=== PATIENT | female | born 1945 | race Caucasian/White ===

== ENCOUNTER 2019-06-01 21:25 | Inpatient (IN) ==
[2019-06-02] MEDS ORDERED: Naloxone 0.4 MG/ML INJ IVP PRN (00:05)
[2019-06-02] MEDS ORDERED: Lactulose Oral Soln 20 GM/30 ML UDC GTUBE ONE (00:07)
[2019-06-02] MEDS ORDERED: Potassium Chloride 40 MEQ, Lidocaine 1% 2 ML in D5% in Water 500 ML IVPB ONE (00:09)
[2019-06-02] MEDS ORDERED: Potassium Chloride Elixir 20 MEQ/15 ML UDC GTUBE ONE (00:09)
[2019-06-02] MEDS ORDERED: Isovue-370 500 ML BOTTLE IVP ONE (00:14)
[2019-06-02] MEDS ORDERED: 0.9 % Sodium Chloride 1,000 ML IVC SCH (00:15)
[2019-06-02] MEDS ORDERED: Dextrose Gel 15 GM/37.5 ML TUBE PO PRN ×2 (00:53)
[2019-06-02] MEDS ORDERED: *HR* Dextrose 50 % in Water (Syg) 50 ML SYRINGE IVP PRN (00:53)
[2019-06-02] MEDS ORDERED: D5% in Water 1,000 ML IVC PRN (00:53)
[2019-06-02 02:47] LABS: Basophils % 0.1 %; Eosinophils % 0.1 %; Hematocrit 43.9 % (35.3-44.9); Hemoglobin 14.6 g/dL (11.5-15.4); Immature Granulocytes % 0.2 % (0-4); Lymphocytes # 1.8 K/mcL (0.6-4.6); Lymphocytes % 21.5 %; Mean Corpuscular HGB Conc 33.3 g/dL (31.6-35.5); Mean Corpuscular Hemoglobin 29.2 pg (28.0-33.3); Mean Corpuscular Volume 87.8 fL (83.0-100.0); Mean Platelet Volume 11.2 fL (9.4-12.4); Monocytes # 0.7 K/mcL (0.0-1.3); Monocytes % 7.6 %; Platelet Count 164 K/mcL (140-400); Red Cell Distribution Width 21.1 % (11.5-14.5); Segmented Neutrophils % 70.5 %; White Blood Count 8.5 K/mcL (4.3-11.1)
[2019-06-02 02:54] LABS: INR 1.4; Prothrombin Time 15.7 Seconds (9.4-12.1)
[2019-06-02 03:07] LABS: Acetaminophen < 10 mcg/mL (10-20); Alanine Aminotransferase 31 Units/L (7-52); Albumin 3.1 g/dL (3.5-5.7); Albumin/Globulin Ratio 0.8 (1.1-2.2); Alkaline Phosphatase 54 Units/L (34-104); Aspartate Amino Transferase 74 Units/L (13-39); BUN/Creatinine Ratio 34 (6-26); Bilirubin,Total 1.1 mg/dL (0.3-1.0); Blood Urea Nitrogen 52 mg/dL (8-23); Calcium 9.8 mg/dL (8.6-10.3); Carbon Dioxide 27 mEq/L (23-29); Chloride 99 mEq/L (98-107); Chol/HDL Ratio 3.9 (0-4.9); Cholesterol 130 mg/dL (< 200); Globulin 4.1 g/dL (2.4-3.5); Glucose 188 mg/dL (70-105); HDL Cholesterol 33 mg/dL (40-59); LDL Cholesterol,Calculated 76 mg/dL (0-99); Magnesium 1.9 mg/dL (1.6-2.6); Osmolality,Calculated 323 (280-300); Potassium 2.8 mEq/L (3.5-5.1); Salicylate < 2.5 mg/dL (15.0-30.0); Sodium 147 mEq/L (136-145); Total Protein 7.2 g/dL (6.4-8.9); Triglycerides 103 mg/dL (< 150); eGFR For African Americans 40 (> 60); eGFR For Non-African Americans 33 (> 60)
[2019-06-02] MEDS: Lactulose Oral Soln 20 GM/30 ML UDC PO SCH ×3 (03:23→08:53)
[2019-06-02 04:17] LABS: Hepatitis B Surface Antigen Nonreactive (Nonreactive)
[2019-06-02 04:45] LABS: Hepatitis C Virus Antibody Nonreactive (Nonreactive)
[2019-06-02 04:46] LABS: Hepatitis B Core IgM Nonreactive (Nonreactive)
[2019-06-02 04:48] LABS: Hepatitis A Antibody IgM Nonreactive (Nonreactive)
[2019-06-02] MEDS: Ringers Solution, Lactated 1,000 ML IVC SCH ×2 (05:44→16:31)
[2019-06-02] MEDS: Insulin LISPRO 300 UNITS/3 ML VIAL SQ SCH ×3 (05:44→17:36)
[2019-06-02] MEDS: *HR* Heparin 5,000 UNIT/ML VIAL SQ SCH ×2 (05:47→16:42)
[2019-06-02 08:25] LABS: Potassium 3.1 mEq/L (3.5-5.1)
[2019-06-02 09:09] LABS: Estimated Average Glucose 194 mg/dl
[2019-06-02] MEDS ORDERED: *HR* OxyCODONE Oral Soln 5 MG/5 ML UD.LIQ PO PRN (11:50)
[2019-06-02] MEDS: 0.45 % Sodium Chloride w/KCl 20 MEQ/1,000 ML MLS IVC SCH (16:48)
[2019-06-02] MEDS: Famotidine 20 MG TABLET PO SCH (20:03)
[2019-06-03] MEDS: Insulin LISPRO 300 UNITS/3 ML VIAL SQ SCH ×5 (01:22→23:29)
[2019-06-03] MEDS: Ringers Solution, Lactated 1,000 ML IVC SCH (05:23)
[2019-06-03] MEDS: *HR* Heparin 5,000 UNIT/ML VIAL SQ SCH ×2 (06:21→16:34)
[2019-06-03 07:11] LABS: Basophils % 0.2 %; Eosinophils # 0.1 K/mcL (0.0-0.6); Hemoglobin 13.9 g/dL (11.5-15.4); Lymphocytes # 1.6 K/mcL (0.6-4.6); Lymphocytes % 26.4 %; Mean Corpuscular HGB Conc 33.1 g/dL (31.6-35.5); Mean Corpuscular Hemoglobin 29.6 pg (28.0-33.3); Mean Corpuscular Volume 89.6 fL (83.0-100.0); Mean Platelet Volume 11.1 fL (9.4-12.4); Monocytes # 0.5 K/mcL (0.0-1.3); Monocytes % 8.8 %; Neutrophils # 3.8 K/mcL (1.6-8.9); Platelet Count 122 K/mcL (140-400); Red Blood Count 4.69 M/mcL (3.82-4.97); Red Cell Distribution Width 20.7 % (11.5-14.5); Segmented Neutrophils % 62.6 %; White Blood Count 6.1 K/mcL (4.3-11.1)
[2019-06-03] MEDS: 0.45 % Sodium Chloride w/KCl 20 MEQ/1,000 ML MLS IVC SCH (07:14)
[2019-06-03 07:31] LABS: Calcium 9.2 mg/dL (8.6-10.3); Magnesium 1.7 mg/dL (1.6-2.6); Potassium 2.9 mEq/L (3.5-5.1)
[2019-06-03] MEDS: Cholecalciferol (D-3) 1,000 UNIT (25MCG) TABLET PO SCH (08:04)
[2019-06-03] MEDS ORDERED: *HR* OxyCODONE Immed Rel 5 MG TABLET PO PRN (08:38)
[2019-06-03] MEDS ORDERED: Potassium Chloride 40 MEQ, Lidocaine 1% 2 ML in D5% in Water 500 ML IVPB ONE (09:36)
[2019-06-03] MEDS: Famotidine 20 MG TABLET PO SCH (21:13)
[2019-06-03] MEDS: Lactulose Oral Soln 20 GM/30 ML UDC PO SCH (21:13)
[2019-06-04 04:56] LABS: Hemoglobin 13.7 g/dL (11.5-15.4); Mean Corpuscular HGB Conc 32.6 g/dL (31.6-35.5); Mean Corpuscular Hemoglobin 29.7 pg (28.0-33.3); Mean Corpuscular Volume 91.1 fL (83.0-100.0); Mean Platelet Volume 10.6 fL (9.4-12.4); Platelet Count 116 K/mcL (140-400); Red Blood Count 4.61 M/mcL (3.82-4.97); Red Cell Distribution Width 20.1 % (11.5-14.5); White Blood Count 5.5 K/mcL (4.3-11.1)
[2019-06-04 05:14] LABS: Alanine Aminotransferase 34 Units/L (7-52); Albumin 2.9 g/dL (3.5-5.7); Albumin/Globulin Ratio 0.8 (1.1-2.2); Alkaline Phosphatase 49 Units/L (34-104); Aspartate Amino Transferase 73 Units/L (13-39); BUN/Creatinine Ratio 30 (6-26); Bilirubin,Total 1.5 mg/dL (0.3-1.0); Blood Urea Nitrogen 32 mg/dL (8-23); Calcium 9.1 mg/dL (8.6-10.3); Carbon Dioxide 27 mEq/L (23-29); Chloride 103 mEq/L (98-107); Globulin 3.5 g/dL (2.4-3.5); Glucose 144 mg/dL (70-105); Osmolality,Calculated 293 (280-300); Potassium 3.5 mEq/L (3.5-5.1); Sodium 137 mEq/L (136-145); Total Protein 6.4 g/dL (6.4-8.9); eGFR For African Americans > 60 (> 60); eGFR For Non-African Americans 51 (> 60)
[2019-06-04] MEDS: *HR* Heparin 5,000 UNIT/ML VIAL SQ SCH ×2 (05:27→17:31)
[2019-06-04] MEDS: Insulin LISPRO 300 UNITS/3 ML VIAL SQ SCH ×4 (05:33→23:39)
[2019-06-04] MEDS: Lactulose Oral Soln 20 GM/30 ML UDC PO SCH ×2 (07:33→20:24)
[2019-06-04] MEDS: Cholecalciferol (D-3) 1,000 UNIT (25MCG) TABLET PO SCH (07:33)
[2019-06-04] MEDS ORDERED: Lactulose Oral Soln 20 GM/30 ML UDC PO ONE (08:34)
[2019-06-04] MEDS: Simethicone 80 MG TAB.CHEW PO PRN ×2 (17:30→20:24)
[2019-06-04] MEDS: Ampicillin/Sulbactam 3,000 MG in 0.9 % Sodium Chloride Mini Bag 100 ML IVPB SCH ×2 (17:30→23:38)
[2019-06-04] MEDS: Famotidine 20 MG TABLET PO SCH (20:24)
[2019-06-04] MEDS ORDERED: *HR* OxyCODONE Immed Rel 5 MG TABLET PO ONE (20:49)
[2019-06-05 05:04] LABS: Hematocrit 45.3 % (35.3-44.9); Mean Corpuscular HGB Conc 33.1 g/dL (31.6-35.5); Mean Corpuscular Hemoglobin 29.8 pg (28.0-33.3); Mean Corpuscular Volume 90.1 fL (83.0-100.0); Mean Platelet Volume 11.4 fL (9.4-12.4); Platelet Count 124 K/mcL (140-400); Red Blood Count 5.03 M/mcL (3.82-4.97); Red Cell Distribution Width 19.2 % (11.5-14.5); White Blood Count 5.9 K/mcL (4.3-11.1)
[2019-06-05] MEDS: Ampicillin/Sulbactam 3,000 MG in 0.9 % Sodium Chloride Mini Bag 100 ML IVPB SCH ×2 (05:21→12:22)
[2019-06-05] MEDS: *HR* Heparin 5,000 UNIT/ML VIAL SQ SCH ×2 (05:21→17:45)
[2019-06-05 05:22] LABS: INR 1.3; Prothrombin Time 14.2 Seconds (9.4-12.1)
[2019-06-05] MEDS: Insulin LISPRO 300 UNITS/3 ML VIAL SQ SCH ×3 (05:25→17:37)
[2019-06-05 05:27] LABS: Alanine Aminotransferase 31 Units/L (7-52); Albumin 3.1 g/dL (3.5-5.7); Albumin/Globulin Ratio 0.8 (1.1-2.2); Alkaline Phosphatase 53 Units/L (34-104); Aspartate Amino Transferase 50 Units/L (13-39); BUN/Creatinine Ratio 24 (6-26); Bilirubin,Direct 0.6 mg/dL (0.0-0.2); Bilirubin,Indirect 0.7 mg/dL (0.0-1.2); Bilirubin,Total 1.3 mg/dL (0.3-1.0); Blood Urea Nitrogen 23 mg/dL (8-23); Calcium 9.8 mg/dL (8.6-10.3); Carbon Dioxide 23 mEq/L (23-29); Chloride 102 mEq/L (98-107); Globulin 3.7 g/dL (2.4-3.5); Glucose 187 mg/dL (70-105); Osmolality,Calculated 293 (280-300); Potassium 3.5 mEq/L (3.5-5.1); Sodium 137 mEq/L (136-145); Total Protein 6.8 g/dL (6.4-8.9); eGFR For African Americans > 60 (> 60); eGFR For Non-African Americans 56 (> 60)
[2019-06-05 07:41] LABS: BUN/Creatinine Ratio 26 (6-26); Blood Urea Nitrogen 24 mg/dL (8-23); Calcium 9.7 mg/dL (8.6-10.3); Carbon Dioxide 23 mEq/L (23-29); Chloride 102 mEq/L (98-107); Glucose 198 mg/dL (70-105); Osmolality,Calculated 294 (280-300); Potassium 3.4 mEq/L (3.5-5.1); Sodium 137 mEq/L (136-145); eGFR For African Americans > 60 (> 60); eGFR For Non-African Americans 58 (> 60)
[2019-06-05] MEDS: Cholecalciferol (D-3) 1,000 UNIT (25MCG) TABLET PO SCH (08:44)
[2019-06-05] MEDS: Lactulose Oral Soln 20 GM/30 ML UDC PO SCH ×2 (08:45→20:01)
[2019-06-05] MEDS: cefTRIAXone 1,000 MG in Water for inj. (sterile) 10 ML IVP SCH (18:43)
[2019-06-05] MEDS: Famotidine 20 MG TABLET PO SCH (20:00)
[2019-06-06] MEDS: Insulin LISPRO 300 UNITS/3 ML VIAL SQ SCH ×3 (00:35→13:25)
[2019-06-06 04:29] LABS: Hematocrit 39.8 % (35.3-44.9); Hemoglobin 13.5 g/dL (11.5-15.4); Mean Corpuscular HGB Conc 33.9 g/dL (31.6-35.5); Mean Corpuscular Volume 88.4 fL (83.0-100.0); Mean Platelet Volume 11.2 fL (9.4-12.4); Platelet Count 111 K/mcL (140-400); Red Cell Distribution Width 19.1 % (11.5-14.5); White Blood Count 5.2 K/mcL (4.3-11.1)
[2019-06-06 04:52] LABS: BUN/Creatinine Ratio 24 (6-26); Blood Urea Nitrogen 22 mg/dL (8-23); Calcium 9.7 mg/dL (8.6-10.3); Carbon Dioxide 25 mEq/L (23-29); Chloride 103 mEq/L (98-107); Glucose 198 mg/dL (70-105); Magnesium 1.7 mg/dL (1.6-2.6); Osmolality,Calculated 291 (280-300); Potassium 3.5 mEq/L (3.5-5.1); Sodium 136 mEq/L (136-145); eGFR For African Americans > 60 (> 60); eGFR For Non-African Americans 59 (> 60)
[2019-06-06] MEDS: *HR* Heparin 5,000 UNIT/ML VIAL SQ SCH ×2 (05:30→17:42)
[2019-06-06] MEDS: Cholecalciferol (D-3) 1,000 UNIT (25MCG) TABLET PO SCH (08:04)
[2019-06-06] MEDS: Lactulose Oral Soln 20 GM/30 ML UDC PO SCH ×3 (08:05→21:44)
[2019-06-06] MEDS: cefTRIAXone 1,000 MG in Water for inj. (sterile) 10 ML IVP SCH (08:05)
[2019-06-06] MEDS ORDERED: Milk and Molasses Enema 200 ML RC ONE (14:22)
[2019-06-06] MEDS: Insulin DETEMIR 100 UNIT/ML X5UNITS SQ SCH (18:52)
[2019-06-06] MEDS ORDERED: Insulin LISPRO 300 UNITS/3 ML VIAL SQ SCH (21:00)
[2019-06-06] MEDS: Famotidine 20 MG TABLET PO SCH (21:44)
[2019-06-07 04:22] LABS: Hematocrit 37.4 % (35.3-44.9); Hemoglobin 12.4 g/dL (11.5-15.4); Mean Corpuscular HGB Conc 33.2 g/dL (31.6-35.5); Mean Corpuscular Volume 90.6 fL (83.0-100.0); Mean Platelet Volume 11.7 fL (9.4-12.4); Platelet Count 108 K/mcL (140-400); Red Blood Count 4.13 M/mcL (3.82-4.97); Red Cell Distribution Width 18.9 % (11.5-14.5); White Blood Count 3.8 K/mcL (4.3-11.1)
[2019-06-07 04:39] LABS: INR 1.3; Prothrombin Time 14.2 Seconds (9.4-12.1)
[2019-06-07 04:49] LABS: BUN/Creatinine Ratio 22 (6-26); Blood Urea Nitrogen 19 mg/dL (8-23); Calcium 9.8 mg/dL (8.6-10.3); Carbon Dioxide 24 mEq/L (23-29); Chloride 106 mEq/L (98-107); Glucose 217 mg/dL (70-105); Magnesium 1.6 mg/dL (1.6-2.6); Osmolality,Calculated 291 (280-300); Potassium 3.5 mEq/L (3.5-5.1); Sodium 136 mEq/L (136-145); eGFR For African Americans > 60 (> 60); eGFR For Non-African Americans > 60 (> 60)
[2019-06-07] MEDS: *HR* Heparin 5,000 UNIT/ML VIAL SQ SCH (05:37)
[2019-06-07 09:19] LABS: Alanine Aminotransferase 24 Units/L (7-52); Albumin 2.7 g/dL (3.5-5.7); Albumin/Globulin Ratio 0.8 (1.1-2.2); Alkaline Phosphatase 48 Units/L (34-104); Aspartate Amino Transferase 29 Units/L (13-39); Bilirubin,Direct 0.4 mg/dL (0.0-0.2); Bilirubin,Indirect 0.4 mg/dL (0.0-1.2); Bilirubin,Total 0.8 mg/dL (0.3-1.0); Globulin 3.5 g/dL (2.4-3.5); Total Protein 6.2 g/dL (6.4-8.9)
[2019-06-07] MEDS: Cholecalciferol (D-3) 1,000 UNIT (25MCG) TABLET PO SCH (09:38)
[2019-06-07] MEDS: cefTRIAXone 1,000 MG in Water for inj. (sterile) 10 ML IVP SCH (09:39)
[2019-06-07] MEDS: Lactulose Oral Soln 20 GM/30 ML UDC PO SCH ×2 (09:39→13:10)
[2019-06-07] MEDS: Insulin LISPRO 300 UNITS/3 ML VIAL SQ SCH ×3 (09:40→18:05)
[2019-06-07] MEDS: Insulin DETEMIR 100 UNIT/ML X5UNITS SQ SCH (09:47)
[2019-06-07 15:46] VITALS: BP 137/73
[2019-06-07] MEDS ORDERED: Aminoglycoside Consult 1 EACH MC ONE (18:36)
[2019-06-08 11:12] LABS: AFP Tumor Marker Non-Pregnant 3 ng/mL (0-9); ANA IgG by ELISA NONE DETECTED (None Detected); F-Actin (sm muscle) Ab IgG 14 Units (0-19); Immunoglobulin A (CELIAC) 689 mg/dL (68-408)
[2019-06-08 11:23] LABS: Serine Protease-3 Antibody 3 AU/mL (0-19); Tissue Transglutaminase IgA 1 U/mL (0-3)
[2019-06-09 10:36] LABS: Saccharomyces cerevisiae IgA 40.2 Units (0.0-24.9)
[2019-06-12 14:43] LABS: A1A SZ Specimen WHOLE BLOOD; Alpha-1-Antitrypsin S Allele NEGATIVE; Alpha-1-Antitrypsin Z Allele NEGATIVE
[2019-06-13 10:31] LABS: Alpha-1-Antitrypsin 219 mg/dL (90-200)
== END 2019-06-07 18:37 | DRG 441 ==
LOC: 2NENU → SUATTDRO 23:40
PROVIDERS: ADMIT Internal Medicine; ATTEND Internal Medicine

== ENCOUNTER 2019-07-19 18:27 | Inpatient (IN) ==
[2019-07-19] MEDS ORDERED: Dextrose Gel 15 GM/37.5 ML TUBE PO PRN ×2 (21:18)
[2019-07-19] MEDS ORDERED: Naloxone 0.4 MG/ML INJ IVP PRN (21:18)
[2019-07-19] MEDS ORDERED: Ondansetron ODT 4 MG TAB.RAPDIS SL PRN (21:18)
[2019-07-19] MEDS ORDERED: *HR* Dextrose 50 % in Water (Syg) 50 ML SYRINGE IVP PRN (21:18)
[2019-07-19] MEDS ORDERED: D5% in Water 1,000 ML IVC PRN (21:18)
[2019-07-19] MEDS: Lactulose Oral Soln 20 GM/30 ML UDC PO SCH (21:45)
[2019-07-19 22:10] LABS: Basophils % 0.3 %; Eosinophils # 0.1 K/mcL (0.0-0.6); Eosinophils % 0.7 %; Hematocrit 46.6 % (35.3-44.9); Hemoglobin 16.2 g/dL (11.5-15.4); Immature Granulocytes % 0.1 % (0-4); Lymphocytes # 2.5 K/mcL (0.6-4.6); Lymphocytes % 34.4 %; Mean Corpuscular HGB Conc 34.8 g/dL (31.6-35.5); Mean Corpuscular Hemoglobin 30.7 pg (28.0-33.3); Mean Corpuscular Volume 88.4 fL (83.0-100.0); Monocytes # 0.7 K/mcL (0.0-1.3); Monocytes % 10.2 %; Neutrophils # 3.9 K/mcL (1.6-8.9); Platelet Count 159 K/mcL (140-400); Red Blood Count 5.27 M/mcL (3.82-4.97); Segmented Neutrophils % 54.3 %; White Blood Count 7.2 K/mcL (4.3-11.1)
--- NOTE | 2019-07-19 22:18 | Internal Med History&Physical ---
Date of Encounter: 07/20/19 Time of Encounter: 22:15 Internal Medicine - H&P: HPI Chief complaint: encephalopathy Admitted From: Home History of present illness: Ms. Kauffman is a 74 year old elderly female presented as transfer for encephalopathy. No family at bedside and continues to be confused and limited history secondary to her condition. Attempted to reach family with no success and multiple attempts with son [phone] with no success. Face to face encounter occurred at 9:10pm. Past Med Surg Social Fam HX - Past Medical History Medical history: COPD, CVA, diabetes, GERD, hypertension, other Additional medical history: CVA 2017 Psychiatric history: depression - Past Surgical History Additional surgical history: R total shoulder replacement. CTR right hand. right hand surgery trigger finger. dental - Social History Smoking Status: Never smoker Smokeless Tobacco Status: No Alcohol use: none Drug use: none - Family History Father Hx Family Cardiac Disorders: Yes Mother Hx Family Endocrine Disorder: Yes (diabetes) Internal Medicine - H&P: Meds Alirocumab [Praluent Pen] 75 mg SQ Q2W 06/01/19 [History] Atenolol [Tenormin] 50 mg PO DAILY 06/01/19 [History] Benzonatate [Tessalon] 200 mg PO Q8HR PRN 06/01/19 [History] Clopidogrel Bisulfate [Plavix] 75 mg PO DAILY 06/01/19 [History] Esomeprazole Magnesium [Nexium] 40 mg PO DAILY 06/01/19 [History] Fenofibrate,Micronized [Fenofibrate] 200 mg PO DAILY 06/01/19 [History] Potassium Chloride [K-Tab ER] 20 meq PO BID 06/01/19 [History] Torsemide [Demadex] 20 mg PO DAILY 06/01/19 [History] Cholecalciferol (D-3) [Vitamin D] 1,000 unit PO DAILY 06/02/19 [History] Escitalopram [Lexapro] 20 mg PO DAILY 06/02/19 [History] Ranitidine HCl [Heartburn Relief] 150 mg PO DAILY 06/02/19 [History] Ferrous Fumarate [Ferrocite] 324 mg PO BID 06/05/19 [History] Guaifenesin [Mucus Relief] 400 mg PO Q12H PRN 06/05/19 [History] Insulin LISPRO [Humalog Kwikpen U-100] 10 - 16 unit SQ TID 06/05/19 [History] Tramadol HCl [Ultram] 50 mg PO Q6H PRN 3 Days #10 tablet 06/07/19 [Rx] Chlorthalidone 25 mg PO DAILY 07/19/19 [History] Insulin Glargine,Hum.rec.anlog [Basaglar Kwikpen U-100] 65 unit SQ BID 07/19/19 [History] Lactulose 15 ml PO 0700,1500 07/19/19 [History] Loratadine [Claritin] 10 mg PO DAILY 07/19/19 [History] Oxycodone HCl/Acetaminophen [Endocet 10-325 mg Tablet] 1 each PO PRN PRN 07/19/19 [History] Allergy/AdvReac Type Severity Reaction Status Date / Time lisinopril Allergy See Verified 07/19/19 15:55 Comments losartan Allergy See Verified 07/19/19 15:55 Comments codeine AdvReac Nausea Verified 06/01/19 21:33 rosuvastatin [From Crestor] AdvReac See Verified 06/01/19 21:33 Comments Sulfa (Sulfonamide AdvReac Cough Verified 06/01/19 21:33 Antibiotics) All Systems PM: A 10-system review of systems was performed and is negative for pertinent findings except as documented above in the HPI. Review of systems: unable to obtain accurately. Patient is encephalopathic. - Constitutional Vitals: Temp Pulse Resp BP Pulse Ox 97.9 F 63 16 147/80 96 07/19/19 20:23 07/19/19 20:23 07/19/19 20:23 07/19/19 20:23 07/19/19 20:23 Exam: General: moderate acute distress. AAOx1, eyes continues to closed but open with pain stimulation. no response to command. Head: Atraumatic, normocephalic. Face symmetric Eyes: EOMI, sclerae anicteric ENT: Mucous membranes moist. Normal oral mucosa. Trachea midline. No cervical lymphadenopathy Thoracic: central chronic healed CABG scar. Normal breath sounds b/l, no wheezing or crackles Cardio: Regular rate and rhythm, no murmurs. Abdomen: Soft, nontender, nondistended. Bowel sounds present. No rebound Extremities: Warm, well perfused. DP pulses 2+ b/l. clubbing noted with no asterisk. Skin: Intact. No rashes, bruises, or ulcers Neuro: Not alert, nor oriented to place, date, or situation. Unable to follow commands when asked to set up or raise arms. Internal Med - H&P Results - Labs CBC & Chem 7: 07/20/19 03:27 07/20/19 03:27 Labs: Short CBC 07/19/19 Range/Units 21:52 WBC 7.2 (4.3-11.1) K/mcL Hgb 16.2 H (11.5-15.4) g/dL Hct 46.6 H (35.3-44.9) % Plt Count 159 (140-400) K/mcL Neutrophils # 3.9 (1.6-8.9) K/mcL - Summary of Assessment and Plan Summary of Assessment and Plan: 1.Acute encephalopathy: CT head, TSH, Ammonia lvl, CMP pending. BUN elevated Likely mulitfactorial Polypharmacy suspected Etoh intake, hepatic encepholpathy and uremia.-US abdomen to check for ascites. Lactulose for now and continue to monitor. 2.Acute Renal Failure: Etiology unclear. UA pending, and was unable to void. bladder scan 350 ml. Patient was given a bolus if unimproved will get straight cath. Recheck in the AM. 3.Hypergammaglobinemia: Gap>4. SPEP/light chain ordered. Recommend follow up results sent to PCP. 4.Elevated troponin: Trend troponin q6 x3. My interpretation showing NSR with no evidence of STT changes. cardiology consultation. 5.Hypokalemia: Replaced. 6.Elevated AST: unclear if patient is an EToh drinker. [place] protocol. Chronic Medical Condition: HLP: alirocumab not avialable as an order. HTN: held due to ARF Chronic pain: unclear. In the setting of ARF held medications. severe CAD s/p cabg: restarted plavix. DVT prophylaxis: heparin Dispo: Likely >2 days in stay. - Time Spent With Patient Total time spent is greater than 37 minutes 50% in coordination of care (as documented) at patient's floor/unit and/or counseling patient: Greater than 35 minutes
[2019-07-19 22:51] LABS: Albumin 3.5 g/dL (3.5-5.7); Albumin/Globulin Ratio 0.8 (1.1-2.2); Calcium 9.2 mg/dL (8.6-10.3); Globulin 4.2 g/dL (2.4-3.5); Magnesium 2.6 mg/dL (1.6-2.6); Phosphorous 3.2 mg/dL (2.7-4.5); Potassium 2.9 mEq/L (3.5-5.1); Total Protein 7.7 g/dL (6.4-8.9); Troponin I 0.06 ng/mL (< 0.04)
[2019-07-20] MEDS ORDERED: 0.9 % Sodium Chloride 1,000 ML IV ONE (00:52)
[2019-07-20] MEDS ORDERED: 0.9 % Sodium Chloride 1,000 ML IVC SCH ×3 (01:00→20:30)
[2019-07-20] MEDS ORDERED: *HR* LORazepam 1 MG TABLET PO SCH (01:30)
[2019-07-20] MEDS ORDERED: Potassium Chloride Elixir 20 MEQ/15 ML UDC PO ONE (01:31)
[2019-07-20] MEDS ORDERED: *HR* LORazepam 2 MG/ML VIAL IVP PRN ×3 (01:44)
[2019-07-20] MEDS: *HR* Heparin 5,000 UNIT/ML VIAL SQ SCH ×4 (01:52→22:10)
[2019-07-20 03:37] LABS: Bilirubin,Urine Negative (Negative); Blood,Urine Negative (Negative); Clarity,Urine Clear (Clear); Color,Urine Yellow (Yellow); Glucose,Urine (UA) Normal (Normal); Ketones,Urine Negative (Negative); Leukocyte Esterase,Urine Negative (Negative); Nitrite,Urine Negative (Negative); PH,Urine 6.5 pH Units (5.0-8.0); Protein,Urine Negative (Neg-Trace); Specific Gravity,Urine 1.014 (1.010-1.025); Urobilinogen,Urine Normal (Normal)
[2019-07-20 03:38] LABS: Hematocrit 49.3 % (35.3-44.9); Hemoglobin 16.7 g/dL (11.5-15.4); Mean Corpuscular HGB Conc 33.9 g/dL (31.6-35.5); Mean Corpuscular Hemoglobin 31.3 pg (28.0-33.3); Mean Corpuscular Volume 92.3 fL (83.0-100.0); Mean Platelet Volume 11.9 fL (9.4-12.4); Platelet Count 147 K/mcL (140-400); Red Blood Count 5.34 M/mcL (3.82-4.97); Red Cell Distribution Width 14.2 % (11.5-14.5); White Blood Count 6.7 K/mcL (4.3-11.1)
[2019-07-20 03:48] LABS: INR 1.4; Prothrombin Time 15.7 Seconds (9.4-12.1)
[2019-07-20 03:59] LABS: Calcium 9.4 mg/dL (8.6-10.3); Chol/HDL Ratio 3.9 (0-4.9)
[2019-07-20] MEDS ORDERED: Morphine Sulfate 2 MG/ML SYRINGE IVP PRN (07:36)
[2019-07-20] MEDS ORDERED: Nitroglycerin 0.4 MG TAB.SUBL SL PRN (07:36)
[2019-07-20] MEDS ORDERED: Aspirin 325 MG TABLET PO ONE (07:36)
[2019-07-20] MEDS ORDERED: Ondansetron 4 MG/2 ML VIAL IVP PRN (07:36)
--- NOTE | 2019-07-20 07:38 | Event Note ---
Date of Encounter: 07/20/19 Time of Encounter: 07:29 Patient complained of chest pain that is left-sided sharp stabbing 7/10 radiating to the back intermittent lasting for a few minutes and subsided by rest and is now pain-free, the pain is exacerbated with movement and pressure- no association of nausea, vomiting, headache. Patient denied personal and family history of AL. On exam patient is sitting comfortably, heart regular rate and rhythm no murmur, lungs clear to auscultate with basilar crackles, capillary refill 3 seconds, chest pain reproducible to palpation. EKG my interpretation showing Q waves and lateral lead 1 and [address]VL otherwise no ST-T changes. Troponin ordered. Patient educated on medical disease and possibility of a previous infarct due to the Q waves. Cardiology is consulted to help guide with management. Nitro, aspirin, statin orderred.
[2019-07-20] MEDS ORDERED: Dextrose Gel 15 GM/37.5 ML TUBE PO PRN ×2 (07:59)
[2019-07-20] MEDS ORDERED: *HR* Dextrose 50 % in Water (Syg) 50 ML SYRINGE IVP PRN (07:59)
[2019-07-20] MEDS ORDERED: D5% in Water 1,000 ML IVC PRN (07:59)
[2019-07-20] MEDS: Lactulose Oral Soln 20 GM/30 ML UDC PO SCH ×3 (08:35→22:09)
[2019-07-20 08:48] LABS: Albumin 3.4 g/dL (3.5-5.7); Albumin/Globulin Ratio 0.9 (1.1-2.2); Bilirubin,Direct 0.8 mg/dL (0.0-0.2); Bilirubin,Indirect 1.2 mg/dL (0.0-1.2); Globulin 3.9 g/dL (2.4-3.5); Total Protein 7.3 g/dL (6.4-8.9)
[2019-07-20] MEDS ORDERED: Vitamin B Complex/Vit C/Vit E 1 EACH TABLET PO SCH (09:00)
[2019-07-20] MEDS ORDERED: Folic Acid 1 MG TABLET PO SCH (09:00)
[2019-07-20] MEDS ORDERED: Thiamine (B-1) 100 MG TABLET PO SCH (09:00)
[2019-07-20 09:37] LABS: Protein/Creatinine Ratio,Urine 0.83 mg/mg (0.00-0.20); Sodium, Urine 65.8 mEq/L
--- NOTE | 2019-07-20 10:13 | Cardiology Consult Note ---
<Sandro Chambers - Last Filed: 07/20/19 10:34> Date of Encounter: 07/20/19 Time of Encounter: 10:10 Assessment and Plan (1) Acute encephalopathy Current Visit: No Status: Acute Per Cardiology: Head CT with no acute findings. Management per primary service. (2) Elevated troponin I level Current Visit: No Status: Acute Per Cardiology: Troponins of 0.06 and 0.05. Of note had mild troponins of 0.0 05/18/2019. Negative nuclear stress test May 2018. Unable to truly obtain history or clinical status due to mental status. On Plavix, statin, beta scarlett. Suspect demand ischemia. No cardiac rehabilitation warranted. Recs for medical management. Will check echo. Will discuss and review with Dr. Chisholm. Discussion w patient/family: The assessment and plan as outlined above was discussed with the patient and/or family members who expressed understanding and agreement. All questions were answered. Thank you for involving us in the care of your patient. Please call with any questions. History of Present Illness Consult date: 07/20/19 Consult reason: Trop elevation, CP Chief complaint: Patient unable to elaborate History of present illness: Ms. Kauffman is a 74 year old female with a relevant past medical history of CVA, DM 2, COPD, GERD, and HTN. Cardiology consult for mild troponin elevation and apparent chest pain. Patient seen with no family at bedside. Patient alert to person only. When asked for the year she kept repeating "20". Patient cannot provide location. She did open eyes to verbal stimuli. Denied any current chest pain. Patient unsure of why in the hospital. She does indicate she had chest pain, headache and diarrhea. Past Med Surg Social Fam HX - Past Medical History Source: old records reviewed Medical history: COPD, CVA, diabetes, GERD, hypertension, other Additional medical history: CVA 2017 Psychiatric history: depression - Past Surgical History Additional surgical history: R total shoulder replacement. CTR right hand. right hand surgery trigger finger. dental - Social History Smoking Status: Never smoker Smokeless Tobacco Status: No Alcohol use: none Drug use: none - Family History Father Hx Family Cardiac Disorders: Yes Mother Hx Family Endocrine Disorder: Yes (diabetes) Medications and Allergies Alirocumab [Praluent Pen] 75 mg SQ Q2W 06/01/19 [History] Atenolol [Tenormin] 50 mg PO DAILY 06/01/19 [History] Benzonatate [Tessalon] 200 mg PO Q8HR PRN 06/01/19 [History] Clopidogrel Bisulfate [Plavix] 75 mg PO DAILY 06/01/19 [History] Esomeprazole Magnesium [Nexium] 40 mg PO DAILY 06/01/19 [History] Fenofibrate,Micronized [Fenofibrate] 200 mg PO DAILY 06/01/19 [History] Potassium Chloride [K-Tab ER] 20 meq PO BID 06/01/19 [History] Torsemide [Demadex] 20 mg PO DAILY 06/01/19 [History] Cholecalciferol (D-3) [Vitamin D] 1,000 unit PO DAILY 06/02/19 [History] Escitalopram [Lexapro] 20 mg PO DAILY 06/02/19 [History] Ranitidine HCl [Heartburn Relief] 150 mg PO DAILY 06/02/19 [History] Ferrous Fumarate [Ferrocite] 324 mg PO BID 06/05/19 [History] Guaifenesin [Mucus Relief] 400 mg PO Q12H PRN 06/05/19 [History] Insulin LISPRO [Humalog Kwikpen U-100] 10 - 16 unit SQ TID 06/05/19 [History] Tramadol HCl [Ultram] 50 mg PO Q6H PRN 3 Days #10 tablet 06/07/19 [Rx] Chlorthalidone 25 mg PO DAILY 07/19/19 [History] Insulin Glargine,Hum.rec.anlog [Basaglar Kwikpen U-100] 65 unit SQ BID 07/19/19 [History] Lactulose 15 ml PO 0700,1500 07/19/19 [History] Loratadine [Claritin] 10 mg PO DAILY 07/19/19 [History] Oxycodone HCl/Acetaminophen [Endocet 10-325 mg Tablet] 1 each PO PRN PRN 07/19/19 [History] Rifaximin [Xifaxan] 550 mg PO BID #60 tablet 07/20/19 [Rx] Allergy/AdvReac Type Severity Reaction Status Date / Time lisinopril Allergy See Verified 07/19/19 15:55 Comments losartan Allergy See Verified 07/19/19 15:55 Comments codeine AdvReac Nausea Verified 06/01/19 21:33 rosuvastatin [From Crestor] AdvReac See Verified 06/01/19 21:33 Comments Sulfa (Sulfonamide AdvReac Cough Verified 06/01/19 21:33 Antibiotics) ROS unobtainable: due to mental status All Systems Review: The remainder of the systems were reviewed and are negative - Cardiovascular Cardiovascular: as per HPI Physical Examination Vital Signs, Last 4 Hours Temp Pulse Resp BP Pulse Ox 07/20/19 06:32 97.8 F 64 16 148/79 97 General: No Apparent Distress HEENT: Atraumatic, Normocephaly, Mucus Membranes Moist Neck: No JVD, Normal carotid pulses Cardiac: Reg Rate and Rhythm, Normal S1 and S2, No Murmur Lungs: Normal Breath Sounds, No Wheeze, Rales, Rhonchi Neuro: Other (Alert to person only, opens eyes to verbal stimuli, spontaneous movement of all 4 extremities, did answer some simple questions) Abdomen: Soft, Non-Tender Skin: No rashes noted on visualized skin Musculoskeletal: No Chest Wall Tenderness Extremities: No Clubbing, No Cyanosis, No Edema, Normal Pulses Results 07/20/19 03:27 07/20/19 03:27 Lab Results Laboratory Tests 06/01/19 06/02/19 07/19/19 19:38 02:31 21:52 Troponin I 0.04 H* 0.04 H* 0.06 H* 07/20/19 03:27 Troponin I 0.05 H* ITS Impressions Head CT 07/19/19 22:27 IMPRESSION: No acute intracranial abnormality. D/ / Queenie Benavides Cha, MD / Queenie Benavides Cha, MD Interpreting Provider: Queenie Benavides Cha, MD Active Medications Atorvastatin Calcium (Lipitor) 40 mg PO HS TOM Stop: 01/19/20 21:01 Clopidogrel Bisulfate (Plavix) 75 mg PO DAILY TOM Stop: 01/19/20 09:01 Last Admin: 07/20/19 08:32 Dose: 75 mg Documented by: Dextrose/Water (Dextrose 50% (Syg)) 25 ml IVP AD PRN PRN Reason: Hypoglycemia Stop: 01/18/20 21:19 Dextrose/Water (Dextrose 50% (Syg)) 25 ml IVP AD PRN PRN Reason: Hypoglycemia Stop: 01/19/20 08:00 Folic Acid (Folic Acid) 1 mg PO DAILY [facility] Stop: 01/19/20 09:01 Last Admin: 07/20/19 08:32 Dose: 1 mg Documented by: Glucagon (Glucagen) 1 mg IM ONCE PRN PRN Reason: Hypoglycemia Stop: 01/18/20 21:19 Glucagon (Glucagen) 1 mg IM ONCE PRN PRN Reason: Hypoglycemia Stop: 01/19/20 08:00 Glucose (Gluctose) 15 gm PO ONCE PRN PRN Reason: Hypoglycemia Stop: 01/18/20 21:19 Glucose (Gluctose) 30 gm PO ONCE PRN PRN Reason: Hypoglycemia Stop: 01/18/20 21:19 Glucose (Gluctose) 15 gm PO ONCE PRN PRN Reason: Hypoglycemia Stop: 01/19/20 08:00 Glucose (Gluctose) 30 gm PO ONCE PRN PRN Reason: Hypoglycemia Stop: 01/19/20 08:00 Heparin Sodium (Porcine) (Heparin) 5,000 unit SQ Q8HCO [facility] Stop: 01/19/20 01:16 Last Admin: 07/20/19 06:00 Dose: 5,000 unit Documented by: Dextrose (Dextrose 5%) 1,000 mls @ 100 mls/hr IVC .Q10H PRN PRN Reason: HYPOGLYCEMIA Stop: 01/18/20 21:19 Dextrose (Dextrose 5%) 1,000 mls @ 100 mls/hr IVC .Q10H PRN PRN Reason: HYPOGLYCEMIA Stop: 01/19/20 08:00 Insulin Detemir (Levemir) 14 unit 0.15 unit/kg (14 unit) SQ HS [facility] Stop: 01/19/20 21:01 Insulin Human Lispro (Humalog) 0 units SQ TIDAC [facility]; Protocol Stop: 01/19/20 11:31 Lactulose (Lactulose) 20 gm PO TID [facility] Stop: 01/18/20 21:31 Last Admin: 07/20/19 08:35 Dose: Not Given Documented by: Lorazepam (Ativan) 1 mg IVP Q1H PRN PRN Reason: Alcohol Withdrawal Stop: 01/19/20 01:45 Lorazepam (Ativan) 2 mg IVP Q4HR PRN PRN Reason: CIWA Score of 10-21 Stop: 01/19/20 01:45 Lorazepam (Ativan) 4 mg IVP Q4HR PRN PRN Reason: CIWA Score of 22-45 Stop: 01/19/20 01:45 Metoprolol Tartrate (Lopressor) 12.5 mg PO BID [facility] Stop: 01/19/20 21:01 Morphine Sulfate (Morphine) 2 mg IVP Q2H PRN PRN Reason: Chest Pain Stop: 01/19/20 07:37 Naloxone HCl (Narcan) 0.4 mg IVP Q2MPRN PRN PRN Reason: SEE COMMENTS Stop: 01/18/20 21:19 Nitroglycerin (Nitroglycerin) 0.4 mg SL Q5MPRN PRN PRN Reason: Chest Pain Stop: 01/19/20 07:37 Ondansetron HCl (Zofran Odt) 4 mg SL Q8HR PRN PRN Reason: Nausea And Vomiting Stop: 01/18/20 21:19 Ondansetron HCl (Zofran) 4 mg IVP Q6HR PRN; Protocol PRN Reason: Nausea Stop: 01/19/20 07:37 Potassium Chloride (Potassium Chloride) 40 meq PO ONCE ONE Stop: 07/21/19 08:01 Rifaximin (Xifaxan) 550 mg PO BID [facility] Stop: 01/19/20 09:01 Last Admin: 07/20/19 10:01 Dose: 550 mg Documented by: Thiamine HCl (Vitamin B-1) 100 mg PO DAILY [facility] Stop: 01/19/20 09:01 Last Admin: 07/20/19 08:32 Dose: 100 mg Documented by: Vitamin B Complex/Vit C/Vit E (Stresstab) 1 each PO DAILY [facility] Stop: 01/19/20 09:01 Last Admin: 07/20/19 08:32 Dose: 1 each Documented by: - Imaging and Cardiology Stress Test: report reviewed - EKG Interpretation EKG results cardiology: personally reviewed, normal ECG, sinus rhythm, no diagnostic ischemia Consult Discharge Plan - Plan Referrals: Eduardo Chauhan MD [Partnered Physician] - Prescriptions: Rifaximin [Xifaxan] 550 mg PO BID #60 tablet <Grupo Chisholm - Last Filed: 07/20/19 13:45> Date of Encounter: 07/20/19 - Attending Attestation I have personally performed a face to face evaluation on this patient. I have reviewed and agree with the care plan. History and Exam by me shows: 74-year-old female with no significant cardiac history negative stress test almost a year ago presents with hepatic encephalopathy continues to be a poor historian with mental status changes. Will obtain echocardiogram if preserved ejection fraction we will continue medical management in no cardiac procedures at this time. Assessment and Plan Discussion w patient/family: The assessment and plan as outlined above was discussed with the patient and/or family members who expressed understanding and agreement. All questions were answered. Thank you for involving us in the care of your patient. Please call with any questions. History of Present Illness History of present illness: Ms. Kauffman is a 74 year old female All Systems Review: The remainder of the systems were reviewed and are negative Physical Examination Vital Signs, Last 4 Hours Temp Pulse Resp BP Pulse Ox 07/20/19 11:00 97.6 F 67 16 124/73 93 Results 07/20/19 03:27 07/20/19 03:27 Lab Results 07/19/19 07/19/19 07/19/19 21:52 21:52 21:52 WBC 7.2 Hgb 16.2 H Hct 46.6 H Plt Count 159 INR Sodium 142 Potassium 2.9 L Chloride 106 Carbon Dioxide 24 BUN 77 H Creatinine 2.05 H Glucose 79 Calcium 9.2 Magnesium 2.6 Total Bilirubin 2.0 H AST 67 H ALT 23 Alkaline Phosphatase 36 Troponin I 0.06 H* B-Natriuretic Peptide 65 07/20/19 07/20/19 07/20/19 03:27 03:27 03:27 WBC 6.7 Hgb 16.7 H Hct 49.3 H Plt Count 147 INR 1.4 Sodium Potassium Chloride Carbon Dioxide BUN Creatinine Glucose Calcium Magnesium Total Bilirubin AST ALT Alkaline Phosphatase Troponin I 0.05 H* B-Natriuretic Peptide 07/20/19 07/20/19 03:27 08:14 WBC Hgb Hct Plt Count INR Sodium 143 Potassium 3.0 L Chloride 109 H Carbon Dioxide 21 L BUN 77 H Creatinine 2.05 H Glucose 108 H Calcium 9.4 Magnesium Total Bilirubin 2.0 H AST 71 H ALT 26 Alkaline Phosphatase 40 Troponin I B-Natriuretic Peptide
--- NOTE | 2019-07-20 11:09 | Gastroenterology Consult Note ---
<Sudhir Vincent - Last Filed: 07/20/19 11:06> Date of Encounter: 07/20/19 Time of Encounter: 09:45 - Assessment and plan (1) Cirrhosis Current Visit: Yes Status: Acute Assessment and plan: MELD-Na 20, Child-Agudelo class B. AFP 3 on 06/05/2019. Liver ultrasound 06/02/2019 with gallbladder sludge with borderline wall thickening, fatty liver. Increase Rifaximin from 200 mg BID to 550 mg BID. Titrate Lactulose for 2-4 BMs daily. Lifestyle Changes: 1. Total abstinence from alcohol including social drinking. 2. No smoking. 3. Gradual loss of weight. 4. Drink at least 3 cups of coffee due to its antioxidant effects in the liver, it reduces risk of HCC and advance fibrosis. 5. If needed, use less than 2 g/day of Tylenol (in divided doses). 6. Vaccination for Hep A, B, Pneumococcus if not already received and yearly influenza vaccination by PCP. 7. Avoid NSAIDS as can cause kidney damage. 8. Avoid benzodiazepines and other sedatives such as anti-histamines, narcotics etc. as can cause encephalopathy or confusion. 9. Take a late carbohydrate meal supplement as it reduces glucose production from protein breakdown and thus improves nutrition. 10. In cirrhosis, statins are safe to use and also improve portal hypertension and decrease risk of HCC. 11. Screening: Hepatocellular cancer screening: US of liver and AFP every 6 months Qualifiers: Hepatic cirrhosis type: unspecified hepatic cirrhosis Ascites presence: unspecified Qualified Code(s): K74.60 - Unspecified cirrhosis of liver (2) Acute hepatic encephalopathy Current Visit: No Status: Acute Assessment and plan: Secondary to cirrhosis. Ammonia 141. Increase Rifaximin from 200 mg BID to 550 mg BID. Titrate Lactulose for 2-4 BMs daily. - Time Spent With Patient Total time spent is greater than 50% in coordination of care (as documented) at patient's floor/unit and/or counseling patient: GI History of Present Illness - Data of Consult Patient: known to practice within the last 3 years Consult date: 07/20/19 Requesting Physician: [facility] - Consult Narrative Reason for consult: Cirrhosis, encephalopathy History of present illness: Ms. Kauffman is a 74 year old female with PMHx of cirrhosis, COPD, CVA 2017, DM, GERD, HTN who was transferred for encephalopathy. No family at bedside. Patient is oriented to her name only. She is unable to state her birthdate, current year (continues to repeat 20), or current location. She denies any chest pain, abdominal pain, nausea, or vomiting. CT A/P 07/19/2019 showed cirrhosis but no acute abnormality. Liver ultrasound 06/02/2019 with gallbladder sludge with borderline wall thickening, fatty liver. Procedures: Colonoscopy 10/21/2010 Dr. Hull: Normal NSAIDs: None Anticoagulation: Plavix Past Med Surg Social Fam HX - Past Medical History Medical history: COPD, CVA, diabetes, GERD, hypertension, other Additional medical history: CVA 2017 Psychiatric history: depression - Past Surgical History Additional surgical history: R total shoulder replacement. CTR right hand. right hand surgery trigger finger. dental - Social History Smoking Status: Never smoker Smokeless Tobacco Status: No Alcohol use: none Drug use: none - Family History Father Hx Family Cardiac Disorders: Yes Mother Hx Family Endocrine Disorder: Yes (diabetes) ROS unobtainable: due to mental status - Constitutional Vitals: Temp Pulse Resp BP Pulse Ox 97.8 F 64 16 148/79 97 07/20/19 06:32 07/20/19 06:32 07/20/19 06:32 07/20/19 06:32 07/20/19 06:32 General appearance: Present: cooperative, A&O X 1, no acute distress - Head Head exam: Present: atraumatic, normocephalic - Eye Eye exam: Present: normal appearance, sclera anicteric - ENT ENT exam: Present: mucous membranes moist - Neck Neck exam general surgery: Present: normal inspection, trachea midline - Respiratory Respiratory exam: Present: decreased breath sounds, CTAB. Absent: rales, rhonchi, wheezes - Cardiovascular Cardiovascular exam: Present: RRR, +S1, +S2 - GI/Abdominal GI/Abdominal exam: Present: soft, no peritoneal signs. Absent: distended, firm, guarding, tenderness - Rectal Rectal exam: Present: deferred - Extremities Exam Extremities exam: Present: warm - Neurological Exam Neurological exam: Present: altered (oriented to person only) - Psychiatric Psychiatric exam: Present: normal affect, normal mood - Skin Skin exam: Present: dry, intact, normal color, warm Results - Labs CBC & Chem 7: 07/20/19 03:27 07/20/19 03:27 Labs: Last Result 07/20/19 07/20/19 03:27 03:27 Calcium 9.4 Troponin I 0.05 H* Triglycerides 145 Entire Visit 07/20/19 07/20/19 07/20/19 00:02 03:27 03:27 Hgb 16.7 H Hct 49.3 H PT 15.7 H Total Bilirubin AST ALT Ammonia 141 H 07/20/19 08:14 Hgb Hct PT Total Bilirubin 2.0 H AST 71 H ALT 26 Ammonia - ABG ABG results: PT/INR, D-dimer PT 15.7 Seconds (9.4-12.1) H 07/20/19 03:27 - Impressions Impressions Head CT 07/19/19 22:27 IMPRESSION: No acute intracranial abnormality. D/ / Queenie Benavides Cha, MD / Queenie Benavides Cha, MD Interpreting Provider: Queenie Benavides Cha, MD Consult Discharge Plan - Plan Referrals: Eduardo Chauhan MD [Partnered Physician] - Prescriptions: Rifaximin [Xifaxan] 550 mg PO BID #60 tablet <Kristina Palomares - Last Filed: 07/20/19 17:48> Date of Encounter: 07/20/19 Time of Encounter: 14:00 - Time Spent With Patient Total time spent is greater than 50% in coordination of care (as documented) at patient's floor/unit and/or counseling patient: GI History of Present Illness - Data of Consult Requesting Physician: [facility] - Consult Narrative History of present illness: Ms. Kauffman is a 74 year old female - Constitutional Vitals: Temp Pulse Resp BP Pulse Ox 98.0 F 69 16 126/74 98 07/20/19 16:29 07/20/19 16:29 07/20/19 16:29 07/20/19 16:29 07/20/19 16:29 Results - Labs CBC & Chem 7: 07/20/19 03:27 07/20/19 03:27 Labs: Entire Visit 07/20/19 08:14 Total Bilirubin 2.0 H AST 71 H ALT 26 - ABG ABG results: PT/INR, D-dimer PT 15.7 Seconds (9.4-12.1) H 07/20/19 03:27 - Impressions Impressions Head CT 07/19/19 22:27 IMPRESSION: No acute intracranial abnormality. D/ / Queenie Benavides Cha, MD / Queenie Benavides Cha, MD Interpreting Provider: Queenie Benavides Cha, MD - Attending Attestation I have personally performed a face to face evaluation on this patient. I have reviewed and agree with the care plan. History and Exam by me shows: Patient seen denies any abdominal pain on examination: Alert and awake but not fully oriented. Assessment:PMHx of cirrhosis, COPD, CVA 2017, DM, GERD, HTN now with encephalopathy. Rec: Continue lactulose along with rifaximin.
--- NOTE | 2019-07-20 12:02 | Internal Med Progress Note ---
Hospitalist Progress Note - Encounter Date of Encounter: 07/20/19 Time of Encounter: 10:20 - Subjective Interval History: Patient was seen this morning, she was eating her breakfast. She looks somnolent and answering questions incorrectly. She denied chest pain, shortness of breath or palpitation. - Exam Vitals: Temp Pulse Resp BP Pulse Ox 97.6 F 67 16 124/73 93 07/20/19 11:00 07/20/19 11:00 07/20/19 11:00 07/20/19 11:00 07/20/19 11:00 Exam: General: No acute distress. AAOx1, Head: Atraumatic, normocephalic. Eyes: EOMI, sclerae anicteric ENT: Mucous membranes moist. Respiratory: Normal breath sounds b/l, no wheezing or crackles Cardio: Regular rate and rhythm, no murmurs. Abdomen: Soft, nontender, nondistended. Bowel sounds present. No rebound Extremities: Warm, well perfused. Asterixis noted Skin: Intact. No rashes, bruises, or ulcers - Assessment and Plan (1) RAVINDER (acute kidney injury) Current Visit: Yes Status: Acute (2) Cirrhosis Current Visit: Yes Status: Chronic (3) Acute encephalopathy Current Visit: Yes Status: Acute (4) Hypokalemia Current Visit: Yes Status: Acute (5) DM type 2 (diabetes mellitus, type 2) Current Visit: Yes Status: Chronic - Summary of Assessment and Plan Summary of Assessment and Plan: 74-year-old female with history of cirrhosis, hepatic encephalopathy, CABG, IDDM who came into the hospital due to change in mental status. Her symptoms are managed as following: Acute encephalopathy: - likely hepatic in etiology given her hyperammonia level, uremia also could be an etiology. Hisotry is limited in her and not sure if she was taking lactulose. CT head is negative for acute bleed. - Will check Urine and Bcx. UA is negative. Continue with lactulose and added rifaxmine. Target 3 BMs a day. TSH is normal. RAVINDER: - Cr Bl is 0.8, today 2.05. FEna is 2.2. CT abdomen without a finding of hydronephrosis or nephrolithiasis. She is on clorthalidone at home. CPK is 956, UA is negative. Free light chain and protein electrophoresis ordered for her gamma gap. - Nephrology is consulted, appreciate recommendations. Hold toresmide. Check BMP tomorrow. Troponin elevation: - Patient had chest pain overnight, troponin peaked 0.06. type I vs Type II. - Cardiology is consulted continue aspirin, BB, Plavix and Lipitor. IDDM: - ADA diet, basal bolus insulin and Accu-Chek 3 times a day before meals. Liver cirrhosis: 2/2 robledo, MELD-Na 20, Child-Agudelo class B. no signs of ascites on CT scan of the abdomen. GI is consulted. Transamnities: AST/ALT >2, no Hx of etoh as per the son. early rhabdo??? check LFT tomorrow. DVT prophylaxis: On subcutaneous heparin - Time Spent with Patient Total time spent is greater than 50% in coordination of care (as documented) at patient's floor/unit and/or counseling patient: Internal Medicine: Result - Labs CBC & Chem 7: 07/20/19 03:27 07/20/19 03:27 Labs: Short CBC 07/19/19 07/20/19 Range/Units 21:52 03:27 WBC 7.2 6.7 (4.3-11.1) K/mcL Hgb 16.2 H 16.7 H (11.5-15.4) g/dL Hct 46.6 H 49.3 H (35.3-44.9) % Plt Count 159 147 (140-400) K/mcL Neutrophils # 3.9 (1.6-8.9) K/mcL BMP 07/19/19 07/20/19 21:52 03:27 Sodium 142 143 Potassium 2.9 L 3.0 L Chloride 106 109 H Carbon Dioxide 24 21 L BUN 77 H 77 H Creatinine 2.05 H 2.05 H Glucose 79 108 H Calcium 9.2 9.4 Cardiac Enzymes 07/19/19 07/20/19 Range/Units 21:52 03:27 Troponin I 0.06 H* 0.05 H* (< 0.04) ng/mL Liver Function 07/19/19 07/20/19 Range/Units 21:52 08:14 Total Bilirubin 2.0 H 2.0 H (0.3-1.0) mg/dL Direct Bilirubin 0.8 H (0.0-0.2) mg/dL AST 67 H 71 H (13-39) Units/L ALT 23 26 (7-52) Units/L Alkaline Phosphatase 36 40 (34-104) Units/L Albumin 3.5 3.4 L (3.5-5.7) g/dL Urine 07/20/19 Range/Units 03:30 Urine Color Yellow (Yellow) Urine Clarity Clear (Clear) Urine pH 6.5 (5.0-8.0) pH Units Ur Specific [place] 1.014 (1.010-1.025) Urine Protein Negative (Neg-Trace) mg/dL Urine Glucose (UA) Normal (Normal) mg/dL - ABG Interpretation ABG results: PT/INR, D-dimer PT 15.7 Seconds (9.4-12.1) H 07/20/19 03:27 - Impressions Impressions Head CT 07/19/19 22:27 IMPRESSION: No acute intracranial abnormality. D/ / Queenie Benavides Cha, MD / Queenie Benavides Cha, MD Interpreting Provider: Queenie Benavides Cha, MD Consult Discharge Plan - Plan Referrals: Eduardo Chauhan MD [Partnered Physician] - ____ (2) Cirrhosis Qualifiers: Hepatic cirrhosis type: unspecified hepatic cirrhosis Ascites presence: unspecified Qualified Code(s): K74.60 - Unspecified cirrhosis of liver (5) DM type 2 (diabetes mellitus, type 2) Qualifiers: Diabetes mellitus longterm insulin use: with longterm use Diabetes mellitus complication status: with hyperglycemia Qualified Code(s): E11.65 - Type 2 diabetes mellitus with hyperglycemia; Z79.4 - skilled nursing (current) use of insulin
[2019-07-20] MEDS: Insulin LISPRO 300 UNITS/3 ML VIAL SQ SCH ×2 (13:05→16:22)
--- NOTE | 2019-07-20 14:52 | Nephrology Consult Note ---
Date of Encounter: 07/20/19 Time of Encounter: 14:47 Assessment and Plan (1) RAVINDER (acute kidney injury) Current Visit: Yes Status: Acute Etiology unclear. GFR fluctuates, has been greater than 60 in the past, has also been in the 40's. GFR is 24, stable from yesterday. IVF increased to 125/hr. Poor historian, unsure if she has ever seen a grab hooker,she is not familiar to our practice. RAVINDER workup ordered. Uric acid is 18.2 CK is 956. (2) Acute encephalopathy Current Visit: Yes Status: Acute Etiology unclear. (3) Hypokalemia Current Visit: Yes Status: Acute Replacement by primary team. Potassium level ordered. 40 meq potassium ordered x 1 for K less than 3.5 for this particular lab draw (1 time order). (4) Cirrhosis Current Visit: Yes Status: Chronic Per primary. Qualifiers: Hepatic cirrhosis type: unspecified hepatic cirrhosis Ascites presence: unspecified Qualified Code(s): K74.60 - Unspecified cirrhosis of liver History of Present Illness - Reason for Consult Consult date: 07/20/19 Acute Kidney Injury, Chronic Kidney Disease Requesting physician: [facility] - Chief Complaint AMS - History of Present Illness Ms Kauffman is a 74 year old female who presented to ED with AMS. PMH: COPD, CVA, diabetes, GERD, hypertension. Patient has had AKIs in the past, GFR was 60 in May of this year. Patient is poor historian due to mentation. Most information was obtained from chart review. No grab hooker in the past. Etiology of RAVINDER unclear. No family at bedside. Unsure of tobacco use, illicit drug use, or etoh. Unsure of FH. Past Med Surg Social Fam HX - Past Medical History Medical history: COPD, CVA, diabetes, GERD, hypertension, other Additional medical history: CVA 2017 Psychiatric history: depression - Past Surgical History Additional surgical history: R total shoulder replacement. CTR right hand. right hand surgery trigger finger. dental - Social History Smoking Status: Never smoker Smokeless Tobacco Status: No Alcohol use: none Drug use: none - Family History Father Hx Family Cardiac Disorders: Yes Mother Hx Family Endocrine Disorder: Yes (diabetes) Medications and Allergies Alirocumab [Praluent Pen] 75 mg SQ Q2W 06/01/19 [History] Atenolol [Tenormin] 50 mg PO DAILY 06/01/19 [History] Clopidogrel Bisulfate [Plavix] 75 mg PO DAILY 06/01/19 [History] Esomeprazole Magnesium [Nexium] 40 mg PO DAILY 06/01/19 [History] Fenofibrate,Micronized [Fenofibrate] 200 mg PO DAILY 06/01/19 [History] Potassium Chloride [K-Tab ER] 20 meq PO BID 06/01/19 [History] Torsemide [Demadex] 20 mg PO DAILY 06/01/19 [History] Cholecalciferol (D-3) [Vitamin D] 1,000 unit PO DAILY 06/02/19 [History] Escitalopram [Lexapro] 20 mg PO QPM 06/02/19 [History] Ranitidine HCl [Heartburn Relief] 150 mg PO HS 06/02/19 [History] Guaifenesin [Mucus Relief] 400 mg PO Q12H PRN 06/05/19 [History] Insulin LISPRO [Humalog Kwikpen U-100] 10 - 16 unit SQ TID 06/05/19 [History] Tramadol HCl [Ultram] 50 mg PO Q6H PRN 3 Days #10 tablet 06/07/19 [Rx] Chlorthalidone 25 mg PO DAILY 07/19/19 [History] Insulin Glargine,Hum.rec.anlog [Basaglar Kwikpen U-100] 50 unit SQ BID 07/19/19 [History] Lactulose 15 ml PO 0930,1530 07/19/19 [History] Loratadine [Claritin] 10 mg PO HS 07/19/19 [History] Ferrous Sulfate [Iron] 325 mg PO BID 07/20/19 [History] Rifaximin [Xifaxan] 550 mg PO BID #60 tablet 07/20/19 [Rx] Allergy/AdvReac Type Severity Reaction Status Date / Time lisinopril Allergy See Verified 07/19/19 15:55 Comments losartan Allergy See Verified 07/19/19 15:55 Comments codeine AdvReac Nausea Verified 06/01/19 21:33 rosuvastatin [From Crestor] AdvReac See Verified 06/01/19 21:33 Comments Sulfa (Sulfonamide AdvReac Cough Verified 06/01/19 21:33 Antibiotics) Review of Systems ROS unobtainable: due to mental status Exam - Vital Signs Vital signs: Initial Vital Signs Temp Pulse Resp BP Pulse Ox 97.9 F 63 16 147/80 96 07/19/19 20:23 07/19/19 20:23 07/19/19 20:23 07/19/19 20:23 07/19/19 20:23 Vital Signs - Last 8 Hours Temp Pulse Resp BP Pulse Ox 07/20/19 11:00 97.6 F 67 16 124/73 93 Intake and Output 07/19/19 07/20/19 07/20/19 23:59 07:59 15:59 Output Total 350 / 620 270 / 620 Balance -350 / -620 -270 / -620 Output: Urine 270 / 270 Straight Cath 350 / 350 Other: Stool Size Moderate Smear Stool Consistency liquid Stool Color Brown # Voids 1 # Bowel Movements 1 # Bowel Movement Diapers 1 Weight 89.5 kg 89.5 kg Blood Glucose* 81 82 190 Patient Weight 07/20/19 23:59 Weight 89.5 kg - General Appearance General appearance: well-developed, well-nourished EENT: ATNC, hearing intact, vision intact Neck: supple Respiratory: clear Cardiology: no edema, normal S1, normal S2 Gastrointestinal: normoactive bowel sounds, no tenderness, no guarding Integumentary: no rash, warm and dry Neurologic: confused Musculoskeletal: no deformities, no erythema Psychiatric: mood/affect appropriate, cooperative Results - Lab Results 07/20/19 03:27 07/20/19 03:27 Most recent lab results 07/20/19 07/20/19 03:27 08:45 Calcium 9.4 Urine Creatinine 42 Urine Sodium 65.8 Urine Total Protein 35 H Consult Discharge Plan - Plan Referrals: Eduardo Chauhan MD [Partnered Physician] - Prescriptions: Rifaximin [Xifaxan] 550 mg PO BID #60 tablet
[2019-07-20 15:01] LABS: Uric Acid 18.2 mg/dL (2.3-7.6)
--- NOTE | 2019-07-20 16:15 | Electrocardiograph Report ---
[address] [place], [place] [address] Test Date: 2019-07-19 Pat Name: Mary Ann Kauffman Department: 115 Room: 3A32 Gender: F Phone Engineer: : [phone] Requested By: Mark Menchaca Order Number: [id number] Reading MD: Fransico Trevino Measurements Intervals [place] Rate: 63 P: 69 DC: 184 QRS: 1 QRSD: 111 T: -2 QT: 447 QTc: 454 Interpretive Statements SINUS RHYTHM MODERATE INTRAVENTRICULAR CONDUCTION DELAY MODERATE T-WAVE ABNORMALITY, CONSIDER INFERIOR ISCHEMIA BASELINE ARTIFACT Electronically Signed On 07-20-2019 16:14:03 EDT by Fransico Trevino
[2019-07-20] MEDS ORDERED: Potassium Chloride Elixir 20 MEQ/15 ML UDC PO PRN (22:06)
[2019-07-20 23:24] LABS: Calcium 9.1 mg/dL (8.6-10.3); Potassium 2.6 mEq/L (3.5-5.1)
[2019-07-21] MEDS: Insulin DETEMIR 100 UNIT/ML X5UNITS SQ SCH ×2 (00:13→22:17)
[2019-07-21 05:16] LABS: Hematocrit 46.9 % (35.3-44.9); Hemoglobin 15.6 g/dL (11.5-15.4); Mean Corpuscular HGB Conc 33.3 g/dL (31.6-35.5); Mean Corpuscular Hemoglobin 30.7 pg (28.0-33.3); Mean Corpuscular Volume 92.3 fL (83.0-100.0); Mean Platelet Volume 11.5 fL (9.4-12.4); Platelet Count 113 K/mcL (140-400); Red Blood Count 5.08 M/mcL (3.82-4.97); Red Cell Distribution Width 14.1 % (11.5-14.5); White Blood Count 5.4 K/mcL (4.3-11.1)
[2019-07-21] MEDS: 0.9 % Sodium Chloride 1,000 ML IVC SCH ×3 (05:27→22:14)
[2019-07-21] MEDS: *HR* Heparin 5,000 UNIT/ML VIAL SQ SCH ×3 (05:27→22:16)
[2019-07-21 06:19] LABS: Albumin 3.2 g/dL (3.5-5.7); Albumin/Globulin Ratio 0.8 (1.1-2.2); Bilirubin,Direct 0.6 mg/dL (0.0-0.2); Bilirubin,Indirect 1.6 mg/dL (0.0-1.2); Bilirubin,Total 2.2 mg/dL (0.3-1.0); Globulin 3.8 g/dL (2.4-3.5)
[2019-07-21] MEDS: Lactulose Oral Soln 20 GM/30 ML UDC PO SCH ×3 (08:57→20:00)
[2019-07-21] MEDS: Insulin LISPRO 300 UNITS/3 ML VIAL SQ SCH ×3 (08:58→17:20)
[2019-07-21] MEDS: Potassium Chloride Elixir 20 MEQ/15 ML UDC PO SCH ×3 (08:59→20:03)
--- NOTE | 2019-07-21 11:15 | Event Note ---
Date of Encounter: 07/21/19 Time of Encounter: 11:15 - Cardiology Event Note ECHO: Impressions: LVEF 60%. Normal LV chamber size, wall thickness and function. Mild left ventricular diastolic dysfunction. Normal right ventricular structure and function. No evidence of pulmonary hypertension. No significant valvular dysfunction. Left Ventricular Wall Motion: Rest Echo Findings All wall segments showed normal motion. Per discussion with Dr. Chisholm, Cardiology signing off, re-consult PRN, f/u arranged.
--- NOTE | 2019-07-21 13:41 | Internal Med Progress Note ---
Hospitalist Progress Note - Encounter Date of Encounter: 07/21/19 Time of Encounter: 10:45 - Exam Vitals: Temp Pulse Resp BP Pulse Ox 98.0 F 70 15 143/76 97 07/21/19 07:28 07/21/19 07:28 07/21/19 07:28 07/21/19 07:28 07/21/19 07:28 Exam: General: No acute distress. AAOx1, Head: Atraumatic, normocephalic. Eyes: EOMI, sclerae anicteric ENT: Mucous membranes moist. Respiratory: Normal breath sounds b/l, no wheezing or crackles Cardio: Regular rate and rhythm, no murmurs. Abdomen: Soft, nontender, nondistended. Bowel sounds present. Extremities: Warm, well perfused. Asterixis noted Skin: Intact. No rashes, bruises, or ulcers - Assessment and Plan (1) RAVINDER (acute kidney injury) Current Visit: Yes Status: Acute (2) Cirrhosis Current Visit: Yes Status: Chronic (3) Acute encephalopathy Current Visit: Yes Status: Acute (4) Hypokalemia Current Visit: Yes Status: Acute (5) DM type 2 (diabetes mellitus, type 2) Current Visit: Yes Status: Chronic - Summary of Assessment and Plan Summary of Assessment and Plan: 74-year-old female with history of cirrhosis, hepatic encephalopathy, CABG, IDDM who came into the hospital due to change in mental status. Her symptoms are managed as following: Acute encephalopathy: slightly improving - likely hepatic in etiology given her hyperammonia level, uremia also could be an etiology. Her Hyper ammonia is likely due to dehydration from torsemide. CT head is negative for acute bleed. - Urine and Bcx are negative. UA is negative. Continue with lactulose and added rifaxmine. Target 3 BMs a day. TSH is normal. RAVINDER: - Cr Bl is 0.8, today1.5 from 2.05. FEna is 2.2. Likely from toerdmide and clorthalidone. CT abdomen without a finding of hydronephrosis or nephrolithiasis. She is on clorthalidone at home. CPK is 956 but down trending. UA is negative. Free light chain and protein electrophoresis ordered for her gamma gap. Nephrology is consulted, appreciate recommendations. Hold toresmide, continue IVF. Check BMP tomorrow. Troponin elevation: Patient had chest pain overnight, troponin peaked 0.06. Most Type II from her kidney's disease. Cardiology is consulted continue aspirin, BB, Plavix and Lipitor. ECHO without significant changes, IDDM: ADA diet, basal bolus insulin and Accu-Chek 3 times a day before meals. Liver cirrhosis: 2/2 robledo, MELD-Na 20, Child-Agudelo class B. no signs of ascites on CT scan of the abdomen. GI is consulted. Transamnities: AST/ALT >2, no Hx of etoh as per the son. check LFT tomorrow. DVT prophylaxis: On subcutaneous heparin - Time Spent with Patient Total time spent is greater than 50% in coordination of care (as documented) at patient's floor/unit and/or counseling patient: Plan of Care Discussed with: nurse Internal Medicine: Result - Labs CBC & Chem 7: 07/21/19 04:53 07/20/19 22:50 Labs: Short CBC 07/21/19 Range/Units 04:53 WBC 5.4 (4.3-11.1) K/mcL Hgb 15.6 H (11.5-15.4) g/dL Hct 46.9 H (35.3-44.9) % Plt Count 113 L (140-400) K/mcL BMP 07/20/19 22:50 Sodium 141 Potassium 2.6 L Chloride 106 Carbon Dioxide 21 L BUN 63 H Creatinine 1.51 H Glucose 186 H Calcium 9.1 Liver Function 07/20/19 07/21/19 Range/Units 08:14 04:53 Total Bilirubin 2.0 H 2.2 H (0.3-1.0) mg/dL Direct Bilirubin 0.8 H 0.6 H (0.0-0.2) mg/dL GGT 83 H (1-24) Units/L AST 71 H 71 H (13-39) Units/L ALT 26 25 (7-52) Units/L Alkaline Phosphatase 40 35 (34-104) Units/L Albumin 3.4 L 3.2 L (3.5-5.7) g/dL - ABG Interpretation ABG results: PT/INR, D-dimer PT 15.7 Seconds (9.4-12.1) H 07/20/19 03:27 - Impressions Impressions Echocardiogram 07/20/19 10:41 Impressions: LVEF 60%. Normal LV chamber size, wall thickness and function. Mild left ventricular diastolic dysfunction. Normal right ventricular structure and function. No evidence of pulmonary hypertension. No significant valvular dysfunction. Left Ventricular Wall Motion: Rest Echo Findings All wall segments showed normal motion. Findings: Study Quality * Technically sub-optimal due to poor echocardiographic windows. ECG Findings * Normal sinus rhythm. Left Ventricle * LVEF 60%. * Normal LV chamber size, wall thickness and function. * Mild left ventricular diastolic dysfunction. Right Ventricle * Normal right ventricular structure and function. Left Atrium * Mildly dilated left atrium. Right Atrium * Normal right atrial size. Interatrial Septum * Interatrial septum not well evaluated. Aortic Valve * Trileaflet aortic valve. * Mildly sclerotic aortic valve leaflets. * No aortic regurgitation. * No aortic stenosis. Mitral Valve * Normal mitral valve structure and function. * No mitral regurgitation. * No mitral stenosis. Tricuspid Valve * Normal tricuspid valve structure and function. * Trace tricuspid regurgitation. * No evidence of pulmonary hypertension. Pulmonic Valve * Pulmonic valve not well visualized. * Trace pulmonic regurgitation. IVC * Normal IVC dimensions and inspiratory collapse. Pulmonary Artery * Normal visualized portions of the main pulmonary artery. Retroperitoneum Ultrasound 07/20/19 14:35 IMPRESSION: Unremarkable ultrasound of the kidneys. 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
--- NOTE | 2019-07-21 13:45 | Nephrology Progress Note ---
Date of Encounter: 07/21/19 Time of Encounter: 12:10 - Assessment and Plan (1) RAVINDER (acute kidney injury) Current Visit: Yes Status: Acute Still pending renal function labs. Addendum: I logged back into [facility] late this afternoon and see that her labs have returned. Both the hypokalemia and acute kidney injury are nicely improving with the IV fluids. She is now showing signs of renal recovery, which is reassuring. In general I still recommend following a renal protective strategy including strict I's and O's, daily weights, and avoidance of ne phrotoxic agents as able I will politely sign off at this time, as she will not require renal replacement therapy. Please feel free to call or page me with any nephrology related questions. Thank you for having consulted the [facility]. (2) Acute encephalopathy Current Visit: Yes Status: Acute As per primary (3) Hypokalemia Current Visit: Yes Status: Acute Improved (4) Cirrhosis Current Visit: Yes Status: Chronic As per primary Qualifiers: Hepatic cirrhosis type: unspecified hepatic cirrhosis Ascites presence: unspecified Qualified Code(s): K74.60 - Unspecified cirrhosis of liver Subjective Principal diagnosis: RAVINDER Interval history: The patient was seen and examined in her room earlier today. Her son was present at the bedside. The patient stated that she feels a little more awake and aware, though still feels slightly confused according to her son. The patient did not affirm having active nausea, vomiting, or diarrhea. Objective - Vital Signs Vital signs: Vital Signs Temp Pulse Resp BP Pulse Ox 07/21/19 07:28 98.0 F 70 15 143/76 97 07/21/19 03:39 97.4 F L 80 16 138/74 96 07/20/19 22:56 97.6 F 63 16 151/74 96 07/20/19 19:22 97.5 F L 75 18 174/90 96 07/20/19 16:29 98.0 F 69 16 126/74 98 Intake and Output 07/20/19 07/21/19 07/21/19 23:59 07:59 15:59 Intake Total 0 / 0 0 / 360 360 / 360 Output Total 700 / 1320 400 / 400 Balance -700 / -1320 0 / -40 -40 / -40 Intake: Oral 0 / 0 0 / 360 360 / 360 Output: Urine 0 / 270 Stool 700 / 700 Urine/Stool Mix 400 / 400 Other: Meal Dinner Breakfast Percent of Meal Consumed 0% 25% Stool Size Large Stool Consistency liquid Stool Color Yellow # Urine Diapers 2 2 1 Weight 92 kg Blood Glucose* 166 91 183 Patient Weight 07/21/19 23:59 Weight 92 kg - General Appearance General appearance: Present: well-developed, well-nourished, appears started age, obese EENT: Present: ATNC, PERRL, mucous membranes dry Neck: Present: no JVD Respiratory: Present: no kyphosis, clear Cardiology: Present: no edema, regular rate, regular rhythm, normal S1, normal S2 Gastrointestinal: Present: normoactive bowel sounds, no guarding, obese Integumentary: Present: warm and dry Neurologic: Present: confused (with a fixed stare and very little movement) Musculoskeletal: Present: no erythema, no cyanosis, no clubbing Psychiatric: Present: cooperative - Lab 07/21/19 04:53 07/21/19 14:17 Consult Discharge Plan - Plan Referrals: Eduardo Chauhan MD [Partnered Physician] -
[2019-07-21 14:49] LABS: Calcium 8.8 mg/dL (8.6-10.3); Potassium 3.6 mEq/L (3.5-5.1)
[2019-07-22] MEDS: *HR* Heparin 5,000 UNIT/ML VIAL SQ SCH ×3 (05:30→22:06)
[2019-07-22] MEDS: 0.9 % Sodium Chloride 1,000 ML IVC SCH ×2 (07:17→09:03)
[2019-07-22] MEDS ORDERED: 0.9 % Sodium Chloride 1,000 ML IVC SCH (07:31)
[2019-07-22] MEDS: Lactulose Oral Soln 20 GM/30 ML UDC PO SCH ×3 (08:54→22:04)
[2019-07-22] MEDS: Potassium Chloride Elixir 20 MEQ/15 ML UDC PO SCH ×3 (08:54→22:03)
[2019-07-22] MEDS: Insulin LISPRO 300 UNITS/3 ML VIAL SQ SCH ×3 (08:55→17:19)
--- NOTE | 2019-07-22 11:54 | Internal Med Progress Note ---
Hospitalist Progress Note - Encounter Date of Encounter: 07/22/19 Time of Encounter: 09:30 - Subjective Interval History: Patient was seen this morning, she looks more alert and oriented compared to yesterday. She is interactive today. She denied any chest pain, shortness of breath. She had nausea/vomiting or diarrhea. She had 2 bowel movements yest erday. - Exam Vitals: Temp Pulse Resp BP Pulse Ox 97.8 F 78 15 183/80 97 07/22/19 07:29 07/22/19 07:29 07/22/19 07:29 07/22/19 07:07/22/19 07:29 Exam: General: No acute distress. AAOx2, Head: Atraumatic, normocephalic. Eyes: EOMI, sclerae anicteric ENT: Mucous membranes moist. Respiratory: Normal breath sounds b/l, no wheezing or crackles Cardio: Regular rate and rhythm, no murmurs. Abdomen: Soft, nontender, nondistended. Bowel sounds present. Extremities: Warm, well perfused. no Asterixis noted Skin: Intact. No rashes, bruises, or ulcers - Assessment and Plan (1) RAVINDER (acute kidney injury) Current Visit: Yes Status: Resolved (2) Cirrhosis Current Visit: Yes Status: Chronic (3) Acute encephalopathy Current Visit: Yes Status: Resolved (4) Hypokalemia Current Visit: Yes Status: Resolved (5) DM type 2 (diabetes mellitus, type 2) Current Visit: Yes Status: Chronic - Summary of Assessment and Plan Summary of Assessment and Plan: 74-year-old female with history of cirrhosis, hepatic encephalopathy, CABG, IDDM who came into the hospital due to change in mental status. Her symptoms are managed as following: Acute encephalopathy: slightly improving - likely hepatic in etiology given her hyperammonia level, uremia also could be an etiology. Her Hyper ammonia is likely due to dehydration from torsemide. CT head is negative for acute bleed. - Urine and Bcx are negative. UA is negative. Continue with lactulose and added rifaxmine. Target 3 BMs a day. TSH is normal. RAVINDER: - Cr Bl is 0.8, today1.2 from 1.5. FEna is 2.2. Likely from toresmide and clorthalidone. CT abdomen without a finding of hydronephrosis or nephrolithiasis. She is on clorthalidone at home. Free light chain and protein electrophoresis ordered for her gamma gap. Nephrology is consulted, appreciate recommendations. Hold toresmide, continue IVF. Check BMP tomorrow. Troponin elevation: Patient had chest pain overnight, troponin peaked 0.06. Most Type II from her kidney's disease. Cardiology is consulted continue aspirin, BB, Plavix and Lipitor. ECHO without significant changes, HTN: Will start her on coreg. continue to monitor. IDDM: ADA diet, basal bolus insulin and Accu-Chek 3 times a day before meals. Liver cirrhosis: 2/2 robledo, MELD-Na 20, Child-Agudelo class B. no signs of ascites on CT scan of the abdomen. GI is on board. Transamnities: AST/ALT >2, no Hx of etoh as per the son. check LFT tomorrow. DVT prophylaxis: On subcutaneous heparin - Time Spent with Patient Total time spent is greater than 50% in coordination of care (as documented) at patient's floor/unit and/or counseling patient: Plan of Care Discussed with: patient Internal Medicine: Result - Labs CBC & Chem 7: 07/21/19 04:53 07/21/19 14:17 Labs: BMP 07/21/19 14:17 Sodium 143 Potassium 3.6 D Chloride 110 H Carbon Dioxide 21 L BUN 51 H Creatinine 1.22 H Glucose 210 H Calcium 8.8 - ABG Interpretation ABG results: PT/INR, D-dimer PT 15.7 Seconds (9.4-12.1) H 07/20/19 03:27 Consult Discharge Plan - Plan Referrals: Eduardo Chauhan MD [Partnered Physician] - (2) Cirrhosis Qualifiers: Hepatic cirrhosis type: unspecified hepatic cirrhosis Ascites presence: unspecified Qualified Code(s): K74.60 - Unspecified cirrhosis of liver (5) DM type 2 (diabetes mellitus, type 2) Qualifiers: Diabetes mellitus nursing home insulin use: with nursing home use Diabetes mellitus complication status: with hyperglycemia Qualified Code(s): E11.65 - Type 2 diabetes mellitus with hyperglycemia; Z79.4 - group home (current) use of insulin
[2019-07-22 16:32] LABS: BUN/Creatinine Ratio 26 (6-26); Blood Urea Nitrogen 26 mg/dL (8-23); Calcium 8.4 mg/dL (8.6-10.3); Carbon Dioxide 20 mEq/L (23-29); Chloride 110 mEq/L (98-107); Glucose 215 mg/dL (70-105); Osmolality,Calculated 299 (280-300); Potassium 3.2 mEq/L (3.5-5.1); Sodium 139 mEq/L (136-145); eGFR For African Americans > 60 (> 60); eGFR For Non-African Americans 54 (> 60)
[2019-07-22] MEDS ORDERED: traMADol 50 MG TABLET PO ONE (21:53)
[2019-07-22] MEDS: Insulin DETEMIR 100 UNIT/ML X5UNITS SQ SCH (22:21)
[2019-07-23 00:13] LABS: Kappa Qnt Free Light Chains 12.1 mg/dL (0.33-1.94); Lambda Qnt Free Light Chains 4.99 mg/dL (0.57-2.63)
[2019-07-23] MEDS: *HR* Heparin 5,000 UNIT/ML VIAL SQ SCH ×3 (05:15→21:45)
[2019-07-23 07:58] LABS: Albumin 2.8 g/dL (3.5-5.7); Albumin/Globulin Ratio 0.9 (1.1-2.2); Bilirubin,Direct 0.5 mg/dL (0.0-0.2); Bilirubin,Indirect 0.7 mg/dL (0.0-1.2); Bilirubin,Total 1.2 mg/dL (0.3-1.0); Globulin 3.2 g/dL (2.4-3.5)
[2019-07-23 07:59] LABS: BUN/Creatinine Ratio 24 (6-26); Blood Urea Nitrogen 20 mg/dL (8-23); Calcium 8.9 mg/dL (8.6-10.3); Carbon Dioxide 21 mEq/L (23-29); Chloride 109 mEq/L (98-107); Glucose 238 mg/dL (70-105); Osmolality,Calculated 296 (280-300); Potassium 3.1 mEq/L (3.5-5.1); Sodium 138 mEq/L (136-145); eGFR For African Americans > 60 (> 60); eGFR For Non-African Americans > 60 (> 60)
[2019-07-23] MEDS: Cholecalciferol (D-3) 1,000 UNIT (25MCG) TABLET PO SCH (08:33)
[2019-07-23] MEDS: Lactulose Oral Soln 20 GM/30 ML UDC PO SCH ×4 (08:33→21:40)
[2019-07-23] MEDS: Insulin LISPRO 300 UNITS/3 ML VIAL SQ SCH ×3 (08:33→17:23)
--- NOTE | 2019-07-23 10:39 | Internal Med Progress Note ---
Hospitalist Progress Note - Encounter Date of Encounter: 07/23/19 Time of Encounter: 09:30 - Subjective Interval History: Patient was seen this morning. She looks awake, alert and oriented 3. She feels better and stronger. She denied any abdominal pain, nausea or vomiting. She was eating her breakfast. She had 2 bowel movements yesterday. - Exam Vitals: Temp Pulse Resp BP Pulse Ox 97.6 F 80 17 154/74 95 07/23/19 07:32 07/23/19 07:32 07/23/19 07:32 07/23/19 07:32 07/23/19 07:32 Exam: General: No acute distress. AAOx2, Head: Atraumatic, normocephalic. Eyes: EOMI, sclerae anicteric ENT: Mucous membranes moist. Respiratory: Normal breath sounds b/l, no wheezing or crackles Cardio: Regular rate and rhythm, no murmurs. Abdomen: Soft, nontender, nondistended. Bowel sounds present. Extremities: Warm, well perfused. no Asterixis noted Skin: Intact. No rashes, bruises, or ulcers - Assessment and Plan (1) RAVINDER (acute kidney injury) Current Visit: Yes Status: Resolved (2) Cirrhosis Current Visit: Yes Status: Chronic (3) Acute encephalopathy Current Visit: Yes Status: Resolved (4) Hypokalemia Current Visit: Yes Status: Acute (5) DM type 2 (diabetes mellitus, type 2) Current Visit: Yes Status: Chronic - Summary of Assessment and Plan Summary of Assessment and Plan: 74-year-old female with history of cirrhosis, hepatic encephalopathy, CABG, IDDM who came into the hospital due to change in mental status. Her symptoms are managed as following: Acute encephalopathy: resolved - likely hepatic in etiology given her hyperammonia level, uremia also could be an etiology. Her Hyper ammonia is likely due to dehydration from torsemide. CT head is negative for acute bleed. - Urine and Bcx are negative. UA is negative. Continue with lactulose and rifaxmine. Target 3 BMs a day. TSH is normal. RAVINDER: resolved - Cr Bl is 0.8. Likely from toresmide and clorthalidone. CT abdomen without a finding of hydronephrosis or nephrolithiasis. Nephrology is consulted, appreciate recommendations. Hold toresmide, DC IVF. Troponin elevation: Patient had chest pain overnight, troponin peaked 0.06. Most Type II from her kidney's disease. Cardiology is consulted continue aspirin, BB, Plavix and Lipitor. ECHO without significant changes, HTN: on coreg. continue to monitor. IDDM: ADA diet, basal bolus insulin and Accu-Chek 3 times a day before meals. Liver cirrhosis: 2/2 robledo. no signs of ascites on CT abdomen. GI is on board. Transamnities: resolved. DVT prophylaxis: On subcutaneous heparin Disposition: Will check with SW for ECF potential. Ready for discharge when placement is found. - Time Spent with Patient Total time spent is greater than 50% in coordination of care (as documented) at patient's floor/unit and/or counseling patient: Plan of Care Discussed with: patient Internal Medicine: Result - Labs CBC & Chem 7: 07/21/19 04:53 07/23/19 07:21 Labs: BMP 07/22/19 07/23/19 15:55 07:21 Sodium 139 138 Potassium 3.2 L 3.1 L Chloride 110 H 109 H Carbon Dioxide 20 L 21 L BUN 26 H 20 Creatinine 1.00 0.83 Glucose 215 H 238 H Calcium 8.4 L 8.9 Liver Function 07/23/19 Range/Units 07:21 Total Bilirubin 1.2 H (0.3-1.0) mg/dL Direct Bilirubin 0.5 H (0.0-0.2) mg/dL AST 37 (13-39) Units/L ALT 23 (7-52) Units/L Alkaline Phosphatase 39 (34-104) Units/L Albumin 2.8 L (3.5-5.7) g/dL - ABG Interpretation ABG results: PT/INR, D-dimer PT 15.7 Seconds (9.4-12.1) H 07/20/19 03:27 Consult Discharge Plan - Plan Referrals: Eduardo Chauhan MD [Partnered Physician] - (2) Cirrhosis Qualifiers: Hepatic cirrhosis type: unspecified hepatic cirrhosis Ascites presence: unspecified Qualified Code(s): K74.60 - Unspecified cirrhosis of liver (5) DM type 2 (diabetes mellitus, type 2) Qualifiers: Diabetes mellitus equipment operator intermodal yard insulin use: with equipment operator intermodal yard use Diabetes mellitus complication status: with hyperglycemia Qualified Code(s): E11.65 - Type 2 diabetes mellitus with hyperglycemia; Z79.4 - termite control service representative (current) use of insulin
[2019-07-23] MEDS: Potassium Chloride Elixir 20 MEQ/15 ML UDC PO SCH ×2 (10:45→21:41)
[2019-07-23 16:18] LABS: Alpha 2 Globulin (PEP) 0.77 g/dL (0.48-1.05); Beta Globulin (PEP) 1.24 g/dL (0.48-1.10)
[2019-07-23] MEDS ORDERED: traMADol 50 MG TABLET PO ONE (20:58)
[2019-07-23] MEDS: Insulin DETEMIR 100 UNIT/ML X5UNITS SQ SCH (21:48)
[2019-07-24 01:13] LABS: Magnesium 1.8 mg/dL (1.6-2.6); Potassium 3.9 mEq/L (3.5-5.1)
[2019-07-24] MEDS: *HR* Heparin 5,000 UNIT/ML VIAL SQ SCH ×3 (04:53→21:17)
[2019-07-24] MEDS: Lactulose Oral Soln 20 GM/30 ML UDC PO SCH ×4 (08:39→21:17)
[2019-07-24] MEDS: Potassium Chloride Elixir 20 MEQ/15 ML UDC PO SCH (08:39)
[2019-07-24] MEDS: Cholecalciferol (D-3) 1,000 UNIT (25MCG) TABLET PO SCH (08:39)
[2019-07-24] MEDS: Insulin LISPRO 300 UNITS/3 ML VIAL SQ SCH ×5 (08:40→21:21)
[2019-07-24 08:41] LABS: IFE Reflexed NOT DONE
--- NOTE | 2019-07-24 12:26 | Internal Med Progress Note ---
Hospitalist Progress Note - Encounter Date of Encounter: 07/24/19 Time of Encounter: 09:45 - Subjective Interval History: No major events overnight. Patient was seen this a.m. sHe denied fever, chills or night sweats. sHe has no nausea, vomiting or abdominal pain. Patient denied chest pain, shortness of breath or palpitation. - Exam Vitals: Temp Pulse Resp BP Pulse Ox 98.0 F 80 15 135/73 94 07/24/19 10:35 07/24/19 10:35 07/24/19 10:35 07/24/19 10:35 07/24/19 10:35 Exam: General: No acute distress. AAOx3, Head: Atraumatic, normocephalic. Eyes: EOMI, sclerae anicteric ENT: Mucous membranes moist. Respiratory: Normal breath sounds b/l, no wheezing or crackles Cardio: Regular rate and rhythm, no murmurs. Abdomen: Soft, nontender, nondistended. Bowel sounds present. Extremities: Warm, well perfused. no Asterixis noted Skin: Intact. No rashes, bruises, or ulcers - Assessment and Plan (1) RAVINDER (acute kidney injury) Current Visit: Yes Status: Resolved (2) Cirrhosis Current Visit: Yes Status: Chronic (3) Acute encephalopathy Current Visit: Yes Status: Resolved (4) Hypokalemia Current Visit: Yes Status: Resolved (5) DM type 2 (diabetes mellitus, type 2) Current Visit: Yes Status: Chronic - Summary of Assessment and Plan Summary of Assessment and Plan: 74-year-old female with history of cirrhosis, hepatic encephalopathy, CABG, IDDM who came into the hospital due to change in mental status. Her symptoms are managed as following: Acute encephalopathy: resolved - likely hepatic in etiology given her hyperammonia level, uremia also could be an etiology. Her Hyper ammonia is likely due to dehydration from torsemide. CT head is negative for acute bleed. - Urine and Bcx are negative. UA is negative. Continue with lactulose and rifaxmine. Target 3 BMs a day. TSH is normal. RAVINDER: resolved - Cr Bl is 0.8. Likely from toresmide and clorthalidone. CT abdomen without a finding of hydronephrosis or nephrolithiasis. Nephrology is consulted, appreciate recommendations. Hold toresmide, DC IVF. Troponin elevation: Patient had chest pain overnight, troponin peaked 0.06. Most Type II from her kidney's disease. Cardiology is consulted continue aspirin, BB, Plavix and Lipitor. ECHO without significant changes, HTN: on coreg. continue to monitor. IDDM: ADA diet, basal bolus insulin and Accu-Chek 3 times a day before meals. increase Levemir to 20 units. Liver cirrhosis: 2/2 robledo. no signs of ascites on CT abdomen. GI is on board. Transamnities: resolved. DVT prophylaxis: On subcutaneous heparin Disposition: Will check with SW for ECF potential. Ready for discharge when placement is found. - Time Spent with Patient Total time spent is greater than 50% in coordination of care (as documented) at patient's floor/unit and/or counseling patient: Greater than 35 minutes Plan of Care Discussed with: patient Internal Medicine: Result - Labs CBC & Chem 7: 07/21/19 04:53 07/24/19 00:30 Labs: BMP 07/24/19 00:30 Potassium 3.9 D - ABG Interpretation ABG results: PT/INR, D-dimer PT 15.7 Seconds (9.4-12.1) H 07/20/19 03:27 Consult Discharge Plan - Plan Referrals: Eduardo Chauhan MD [Partnered Physician] - (2) Cirrhosis Qualifiers: Hepatic cirrhosis type: unspecified hepatic cirrhosis Ascites presence: unspecified Qualified Code(s): K74.60 - Unspecified cirrhosis of liver (5) DM type 2 (diabetes mellitus, type 2) Qualifiers: Diabetes mellitus fpc insulin use: with manager terminal use Diabetes mellitus complication status: with hyperglycemia Qualified Code(s): E11.65 - Type 2 diabetes mellitus with hyperglycemia; Z79.4 - manager terminal (current) use of insulin
[2019-07-24] MEDS ORDERED: Insulin DETEMIR 100 UNIT/ML X5UNITS SQ SCH (21:00)
[2019-07-25] MEDS: *HR* Heparin 5,000 UNIT/ML VIAL SQ SCH ×2 (05:25→13:58)
[2019-07-25] MEDS: Insulin LISPRO 300 UNITS/3 ML VIAL SQ SCH ×4 (09:28→11:44)
[2019-07-25] MEDS: Cholecalciferol (D-3) 1,000 UNIT (25MCG) TABLET PO SCH (09:50)
[2019-07-25] MEDS: Lactulose Oral Soln 20 GM/30 ML UDC PO SCH ×2 (09:51→13:57)
--- NOTE | 2019-07-25 10:06 | Discharge Summary ---
- NOTES TO OUTPATIENT PROVIDER Notes to Outpatient Provider: Patient was admitted due to hepatic encephalopathy related to dehydration from diuretics. Her torsemide was on hold and she was started on IV fluids with resolution of her RAVINDER. Her diuretics will remain on hold as she looks euvolemic. She will require lactulose 3-4 times daily. Follow-up with outpatient GI and she will require rifaxmine pre-authrization. Date of Encounter: 07/25/19 Time of Encounter: 10:25 - Discharge Diagnosis (1) Acute encephalopathy Priority: Primary Status: Resolved (2) RAVINDER (acute kidney injury) Priority: Secondary Status: Resolved (3) Cirrhosis Priority: Secondary Status: Chronic Qualifiers: Hepatic cirrhosis type: unspecified hepatic cirrhosis Ascites presence: unspecified Qualified Code(s): K74.60 - Unspecified cirrhosis of liver (4) Hypokalemia Priority: Secondary Status: Resolved (5) DM type 2 (diabetes mellitus, type 2) Priority: Secondary Status: Chronic Qualifiers: Diabetes mellitus chcf insulin use: with intermediate project manager use Diabetes mellitus complication status: with hyperglycemia Qualified Code(s): E11.65 - Type 2 diabetes mellitus with hyperglycemia; Z79.4 - jail (current) use of insulin Hospital course: 74-year-old female with history of cirrhosis, hepatic encephalopathy, CABG, IDDM who was an inpatient hospital for hepatic encephalopathy related to dehydration from diuretics. Infection r/o with negative cultures. Patient had RAVINDER at presentation and her diuretic were placed on hold along with IV fluids with significant improvement in her kidney dysfunction. She had also lactulose which helped improve her mental status and decrease her ammonia level. She will need outpatient prior authorization for xifaxan. Today, patient is hematologically stable, mentally better. She will be discharged to [facility] in stable condition. Discharge discussed with: patient - Time Spent with Patient Total time spent providing and/or coordinating discharge services: 42 minutes - Discharge Medications Prescriptions: New Carvedilol [Coreg] 6.25 mg PO BIDWM #60 tablet Lactulose 20 gm PO QID #120 udc Continued Cholecalciferol (D-3) [Vitamin D] 1,000 unit PO DAILY Ranitidine HCl [Heartburn Relief] 150 mg PO HS Escitalopram [Lexapro] 20 mg PO QPM Guaifenesin [Mucus Relief] 400 mg PO Q12H PRN PRN Reason: Congestion Insulin LISPRO [Humalog Kwikpen U-100] 10 - 16 unit SQ TID Ferrous Sulfate [Iron] 325 mg PO BID Esomeprazole Magnesium [Nexium] 40 mg PO DAILY Clopidogrel Bisulfate [Plavix] 75 mg PO DAILY Alirocumab [Praluent Pen] 75 mg SQ Q2W Loratadine [Claritin] 10 mg PO HS Insulin Glargine,Hum.rec.anlog [Basaglar Kwikpen U-100] 50 unit SQ BID Discontinued Tramadol HCl [Ultram] 50 mg PO Q6H PRN 3 Days #10 tablet PRN Reason: Pain Potassium Chloride [K-Tab ER] 20 meq PO BID Fenofibrate,Micronized [Fenofibrate] 200 mg PO DAILY Torsemide [Demadex] 20 mg PO DAILY Atenolol [Tenormin] 50 mg PO DAILY Lactulose 15 ml PO 0930,1530 Chlorthalidone 25 mg PO DAILY Home Medications: Alirocumab [Praluent Pen] 75 mg SQ Q2W 06/01/19 [History] Clopidogrel Bisulfate [Plavix] 75 mg PO DAILY 06/01/19 [History] Esomeprazole Magnesium [Nexium] 40 mg PO DAILY 06/01/19 [History] Cholecalciferol (D-3) [Vitamin D] 1,000 unit PO DAILY 06/02/19 [History] Escitalopram [Lexapro] 20 mg PO QPM 06/02/19 [History] Ranitidine HCl [Heartburn Relief] 150 mg PO HS 06/02/19 [History] Guaifenesin [Mucus Relief] 400 mg PO Q12H PRN 06/05/19 [History] Insulin LISPRO [Humalog Kwikpen U-100] 10 - 16 unit SQ TID 06/05/19 [History] Insulin Glargine,Hum.rec.anlog [Basaglar Kwikpen U-100] 50 unit SQ BID 07/19/19 [History] Loratadine [Claritin] 10 mg PO HS 07/19/19 [History] Ferrous Sulfate [Iron] 325 mg PO BID 07/20/19 [History] Carvedilol [Coreg] 6.25 mg PO BIDWM #60 tablet 07/25/19 [Rx] Lactulose 20 gm PO QID #120 udc 07/25/19 [Rx] Allergies/Adverse Reactions: Allergy/AdvReac Type Severity Reaction Status Date / Time lisinopril Allergy See Verified 07/19/19 15:55 Comments losartan Allergy See Verified 07/19/19 15:55 Comments codeine AdvReac Nausea Verified 06/01/19 21:33 rosuvastatin [From Crestor] AdvReac See Verified 06/01/19 21:33 Comments Sulfa (Sulfonamide AdvReac Cough Verified 06/01/19 21:33 Antibiotics) Date of admission: 07/21/19 12:52 Primary care physician: PCP NONE Consults: 07/20/19 01:44 Consult to Sawmill Worker [CONS] Routine Reason for SW Consult: Assess d/c needs of patient. 07/20/19 07:27 Consult to Physical Therapy [CONS] Routine Comment: Evaluate, develop and implement POC Reason for Consult: Evaluation and treatment. Does patient have active BEDREST order?: No Is patient medically & hemodynamically stable?: Yes Patient assessed for mobility or mobilized this visit?: No 07/20/19 07:56 Consult to Gastroenterology [CONS] Routine Consulting Provider: Gastroenterology Ana Reason for Consult: cirrhosis, hyper ammonia Call Completed: No 07/20/19 11:54 Consult to Nephrology [CONS] Routine Consulting Provider: Kidney Ana/DEB/MANNY/BREE Reason for Consult: ravinder Call Completed: Yes 07/21/19 06:00 Consult to Cardiology [CONS] Routine Comment: Consulting Provider: Cardiology Ana Reason for Consult: elevated troponin, statin intolerant, on plavix. Encephalopathic Call Completed: No 07/21/19 08:44 Consult to Occupational Therapy [CONS] Routine Comment: Evaluate, develop and implement POC Reason for Consult: weakness Does patient have active BEDREST order?: No Is patient medically & hemodynamically stable?: Yes Patient assessed for mobility or mobilized this visit?: No - Constitutional Vitals: Temp Pulse Resp BP Pulse Ox 97.9 F 76 14 150/79 98 07/25/19 08:29 07/25/19 08:29 07/25/19 08:29 07/25/19 08:29 07/25/19 08:29 Exam: General: No acute distress. AAOx3, Head: Atraumatic, normocephalic. Eyes: EOMI, sclerae anicteric ENT: Mucous membranes moist. Respiratory: Normal breath sounds b/l, no wheezing or crackles Cardio: Regular rate and rhythm, no murmurs. Abdomen: Soft, nontender, nondistended. Bowel sounds present. Extremities: Warm, well perfused. no Asterixis noted Skin: Intact. No rashes, bruises, or ulcers - Patient Status Disposition: Transfer SNF Condition: Good Functional capacity at discharge: uses cane/walker Overall status at discharge: patient is back to baseline - Discharge Instructions Follow Up With: Eduardo Chauhan MD [Partnered Physician] - Kristina Palomares MD [Partnered Physician] - - Diet and Activity Activity: as per physical therapy Diet: diabetic diet
--- NOTE | 2019-07-25 10:12 | Physician Discharge Referral ---
Extended[facility] Referral Info Transfer To: [facility] - Diagnosis (1) Acute encephalopathy Priority: Primary Status: Resolved (2) RAVINDER (acute kidney injury) Priority: Secondary Status: Resolved (3) Cirrhosis Priority: Secondary Status: Chronic (4) Hypokalemia Priority: Secondary Status: Resolved (5) DM type 2 (diabetes mellitus, type 2) Priority: Secondary Status: Chronic Prognosis: Good - Transfer Medications Prescriptions: Carvedilol [Coreg] 6.25 mg PO BIDWM #60 tablet Lactulose 20 gm PO QID #120 udc Home Medications: Alirocumab [Praluent Pen] 75 mg SQ Q2W 06/01/19 [History] Clopidogrel Bisulfate [Plavix] 75 mg PO DAILY 06/01/19 [History] Esomeprazole Magnesium [Nexium] 40 mg PO DAILY 06/01/19 [History] Cholecalciferol (D-3) [Vitamin D] 1,000 unit PO DAILY 06/02/19 [History] Escitalopram [Lexapro] 20 mg PO QPM 06/02/19 [History] Ranitidine HCl [Heartburn Relief] 150 mg PO HS 06/02/19 [History] Guaifenesin [Mucus Relief] 400 mg PO Q12H PRN 06/05/19 [History] Insulin LISPRO [Humalog Kwikpen U-100] 10 - 16 unit SQ TID 06/05/19 [History] Insulin Glargine,Hum.rec.anlog [Basaglar Kwikpen U-100] 50 unit SQ BID 07/19/19 [History] Loratadine [Claritin] 10 mg PO HS 07/19/19 [History] Ferrous Sulfate [Iron] 325 mg PO BID 07/20/19 [History] Carvedilol [Coreg] 6.25 mg PO BIDWM #60 tablet 07/25/19 [Rx] Lactulose 20 gm PO QID #120 udc 07/25/19 [Rx] Allergies/Adverse Reactions: Allergy/AdvReac Type Severity Reaction Status Date / Time lisinopril Allergy See Verified 07/19/19 15:55 Comments losartan Allergy See Verified 07/19/19 15:55 Comments codeine AdvReac Nausea Verified 06/01/19 21:33 rosuvastatin [From Crestor] AdvReac See Verified 06/01/19 21:33 Comments Sulfa (Sulfonamide AdvReac Cough Verified 06/01/19 21:33 Antibiotics) - Respiratory Orders Smoking Cessation: Smoking cessation has been advised. For more information, call the [place] Tobacco Quit Line at 7-701-JBFN-NOW. - Rehabiliation Orders Rehab Potential: Good Rehab Orders: Evaluation for Physical Therapy, Evaluation for Occupational Therapy - Diet Orders Cardiac (diabetic) CERTIFICATION: I certify that the transfer of the above named patient to an Extended Care Facility is necessary for the continuing treatment of the diagnosis listed. The above information is true and accurate reflection of patient's current condition. Confidential - Redisclosure prohibited without a patient's written consent.
[2019-07-25 11:12] VITALS: BP 143/81
== END 2019-07-25 14:48 | disposition other institution (70) | DRG 442 ==
LOC: 3ANU → SUATTDRO 19:46
PROVIDERS: ADMIT Internal Medicine; ATTEND Internal Medicine

== ENCOUNTER 2020-10-22 05:58 | Observation (INO) ==
[2020-10-22] MEDS ORDERED: Naloxone 0.4 MG/ML INJ IVP PRN (08:11)
[2020-10-22] MEDS ORDERED: Acetaminophen 325 MG TABLET PO PRN (08:11)
[2020-10-22] MEDS ORDERED: Ondansetron 4 MG/2 ML VIAL IVP PRN (08:11)
[2020-10-22] MEDS ORDERED: Perflutren Lipid Microsphere 1.3 ML in 0.9 % Sodium Chloride 8.7 ML IVP PRN (08:13)
[2020-10-22] MEDS ORDERED: D5% in Water 1,000 ML IVC PRN (10:07)
[2020-10-22] MEDS ORDERED: Dextrose Gel 15 GM/37.5 ML TUBE PO PRN ×2 (10:07)
[2020-10-22] MEDS ORDERED: *HR* Dextrose 50 % in Water (Vial) 50 ML VIAL IVP PRN (10:07)
[2020-10-22] MEDS ORDERED: traZODone 50 MG TABLET PO PRN (10:10)
[2020-10-22] MEDS ORDERED: atenoloL 50 MG TABLET PO SCH (10:15)
[2020-10-22] MEDS: Furosemide 40 MG/4 ML VIAL IVP SCH ×2 (11:10→16:29)
[2020-10-22] MEDS: atenoloL 50 MG TABLET PO SCH (11:11)
[2020-10-22] MEDS: Insulin LISPRO 300 UNITS/3 ML VIAL SQ SCH ×2 (12:12→16:29)
[2020-10-22] MEDS: Insulin DETEMIR 100 UNIT/ML X5UNITS SQ SCH ×2 (12:13→23:20)
[2020-10-22] MEDS: *HR* OxyCODONE/APAP 5/325 TABLET PO PRN (14:22)
[2020-10-22] MEDS: Lactulose Oral Soln 20 GM/30 ML UDC PO SCH ×2 (14:23→22:37)
[2020-10-22] MEDS ORDERED: Insulin LISPRO 300 UNITS/3 ML VIAL SQ SCH (21:00)
[2020-10-23] MEDS ORDERED: *HR* Enoxaparin 40 MG/0.4 ML SYRINGE SQ SCH (06:00)
[2020-10-23] MEDS ORDERED: Regadenoson 0.4 MG/5 ML SYRINGE IVP ONE (06:16)
[2020-10-23] MEDS: *HR* OxyCODONE/APAP 5/325 TABLET PO PRN (06:18)
[2020-10-23 06:19] LABS: Mean Corpuscular HGB Conc 33.3 g/dL (31.6-35.5); Red Blood Count 4.56 M/mcL (3.82-4.97)
[2020-10-23 06:21] LABS: Hematocrit 43.6 % (35.3-44.9); Hemoglobin 14.5 g/dL (11.5-15.4); Immature Platelets 5.5 % (1.1-6.1); Mean Corpuscular Hemoglobin 31.8 pg (28.0-33.3); Mean Corpuscular Volume 95.6 fL (83.0-100.0); Mean Platelet Volume 11.3 fL (9.4-12.4); Red Cell Distribution Width 13.4 % (11.5-14.5); White Blood Count 4.5 K/mcL (4.3-11.1)
[2020-10-23 06:57] LABS: BUN/Creatinine Ratio 19 (6-26); Blood Urea Nitrogen 23 mg/dL (8-23); Calcium 9.2 mg/dL (8.6-10.3); Carbon Dioxide 27 mEq/L (23-29); Chloride 102 mEq/L (98-107); Chol/HDL Ratio 4.1 (0-4.9); Cholesterol 170 mg/dL (< 200); Glucose 160 mg/dL (70-105); HDL Cholesterol 41 mg/dL (40-59); LDL Cholesterol,Calculated 71 mg/dL (< 100); Magnesium 1.8 mg/dL (1.6-2.6); Osmolality,Calculated 291 (280-300); Potassium 3.7 mEq/L (3.5-5.1); Sodium 137 mEq/L (136-145); Triglycerides 288 mg/dL (< 150); Troponin I < 0.03 ng/mL (< 0.04); eGFR For African Americans 54 (> 60); eGFR For Non-African Americans 45 (> 60)
[2020-10-23] MEDS: atenoloL 50 MG TABLET PO SCH (08:51)
[2020-10-23] MEDS: Furosemide 40 MG/4 ML VIAL IVP SCH (08:51)
[2020-10-23] MEDS: Lactulose Oral Soln 20 GM/30 ML UDC PO SCH (08:51)
[2020-10-23] MEDS: Insulin DETEMIR 100 UNIT/ML X5UNITS SQ SCH (08:52)
[2020-10-23] MEDS: Insulin LISPRO 300 UNITS/3 ML VIAL SQ SCH ×2 (09:00→12:27)
[2020-10-23 11:48] LABS: Estimated Average Glucose 166 mg/dl
[2020-10-23 12:15] VITALS: BP 155/82
[2020-10-24] MEDS ORDERED: Isosorbide MONOnitrate (24 HR) 30 MG TAB.ER.24H PO SCH (09:00)
== END 2020-10-23 15:17 | disposition home or self-care (01) ==
LOC: 3BNU → SUATTDRO 09:24
PROVIDERS: ADMIT Internal Medicine; ATTEND Internal Medicine